=== PATIENT | male | born 1970 | race Caucasian/White ===

== ENCOUNTER → 2019-07-18 | Outpatient (CLI) | payer OTHER ==
[~2019-07-18] MED LIST: RT-ALBUTEROL SULF 2.5 MG/3 ML PRE-MIX VIAL INH ONE; RT-ALBUTEROL SULF 2.5 MG/3 ML PRE-MIX VIAL ONE
--- NOTE | 2019-07-18 18:06 | Diagnostic Imaging Report ---
INDICATION: Disability determination. Severe hip pain and bilateral knee and upper and lower back pain. FINDINGS: An AP view of the pelvis demonstrates normal ossification. No fracture or diastases is present. IMPRESSION: Normal pelvis. Dictated by: Dictated on workstation # [id number]
--- NOTE | 2019-07-18 18:18 | Diagnostic Imaging Report ---
EXAMINATION: Right knee radiographs, 2 views. COMPARISON: None. HISTORY: 49-year-old male, knee pain. FINDINGS: There is no acute fracture. There is no knee joint effusion. The joint spaces are well-preserved. There is no prominent osteophyte formation. There is no radiopaque foreign body. IMPRESSION: Unremarkable right knee radiographs. Dictated by: Dictated on workstation # [id number]
== END ==
LOC: RT 16:13
PROVIDERS: ATTEND Surgery
DX: Z02.71 Encounter for disability determination (principal); S79.911A Unspecified injury of right hip, initial encounter; S89.91XA Unspecified injury of right lower leg, initial encounter; R06.02 Shortness of breath
CPT/HCPCS: 72170; 73560; 94060; 94729

== ENCOUNTER 2019-12-31 11:25 | Inpatient (IN) | payer SELFPAY ==
[~2019-12-31] VITALS: Ht 172 cm; Wt 152.0 kg
--- NOTE | 2019-12-31 11:51 | ED Respiratory ---
General Chief Complaint: Respiratory Problems Stated Complaint: FLU LIKE SYMPTOMS Nursing Triage Note: TO TRIAGE WITH COMPLAINTS OF SOA AND COUGH FOR A FEW DAYS. Source: patient Exam Limitations: no limitations History of Present Illness Date Seen by Provider: Dec 31, 2019 Time Seen by Provider: 11:49 Initial Comments Patient presents with cough for 5 days. Some shortness of air. Especially with exertion or when he lays down. Patient was noticeably short of breath when he was walking into the room. Patient has a subjective fever, body aches. Patient reports that he does not have a primary care provider. Allergies and Home Medications Allergies Coded Allergies: No Known Drug Allergies (Unverified , 07/18/19) Patient Home Medication List Home Medication List Reviewed: Yes Review of Systems Review of Systems Constitutional: chills, fever, malaise Respiratory: cough, dyspnea on exertion, short of breath Cardiovascular: No chest pain Gastrointestinal: No abdominal pain; nausea, vomiting Musculoskeletal: no symptoms reported Skin: no symptoms reported Past Hoasruz-Uejnei-Jxyhrs Hx Past Med/Social Hx: Reviewed Nursing Past Med/Soc Hx Patient Social History Recent Foreign Travel: No Contact w/Someone Who Travel: No Recent Infectious Disease Expo: No Recent Hopitalizations: No Seasonal Allergies Seasonal Allergies: No Past Medical History Respiratory: Yes (COLALLAPSED LUNG) Cardiac: Yes Hypertension Neurological: No Genitourinary: No Gastrointestinal: No Endocrine: No HEENT: No Cancer: No Psychosocial: No Integumentary: No Physical Exam Vital Signs - First Documented 12/31/19 12/31/19 11:40 12:13 Temp 37.1 Pulse 95 Resp 20 B/P (MAP) 129/81 (97) Pulse Ox 87 O2 Delivery Room Air O2 Flow Rate 2.00 FiO2 100 Capillary Refill : Less Than 3 Seconds Height: '" Weight: lbs. oz. kg; 51.00 BMI Method: General Appearance: obese, other (mild distress especially with any exertion.) Respiratory: decreased breath sounds Cardiovascular: normal peripheral pulses, regular rate, rhythm Gastrointestinal: non tender, soft Extremities: normal range of motion Neurologic/Psychiatric: alert, normal mood/affect, oriented x 3 Progress/Results/Core Measures Suspected Sepsis Recent Fever Within 48 Hours: No Infection Criteria Present: Suspected New Infection New/Unexplained Altered Menta: No Sepsis Screen: No Definite Risk SIRS Temperature: Pulse: 95 Respiratory Rate: 20 Laboratory Tests 12/31/19 12:11: White Blood Count 5.5 Blood Pressure 129 /81 Mean: 97 Laboratory Tests 12/31/19 12:11: Creatinine 0.91, Platelet Count 188, Total Bilirubin 0.4 Results/Orders Lab Results Laboratory Tests Test 12/31/19 12:11 Range/Units White Blood Count 5.5 4.3-11.0 10^3/uL Red Blood Count 4.69 4.35-5.85 10^6/uL Hemoglobin 13.4 13.3-17.7 G/DL Hematocrit 42 40-54 % Mean Corpuscular Volume 89 80-99 FL Mean Corpuscular Hemoglobin 29 25-34 PG Mean Corpuscular Hemoglobin Concent 32 32-36 G/DL Red Cell Distribution Width 15.8 H 10.0-14.5 % Platelet Count 188 130-400 10^3/uL Mean Platelet Volume 10.6 H 7.4-10.4 FL Neutrophils (%) (Auto) 73 42-75 % Lymphocytes (%) (Auto) 16 12-44 % Monocytes (%) (Auto) 10 0-12 % Eosinophils (%) (Auto) 1 0-10 % Basophils (%) (Auto) 0 0-10 % Neutrophils # (Auto) 4.0 1.8-7.8 X 10^3 Lymphocytes # (Auto) 0.9 L 1.0-4.0 X 10^3 Monocytes # (Auto) 0.5 0.0-1.0 X 10^3 Eosinophils # (Auto) 0.1 0.0-0.3 10^3/uL Basophils # (Auto) 0.0 0.0-0.1 10^3/uL D-Dimer 0.55 H 0.00-0.49 UG/ML Sodium Level 136 135-145 MMOL/L Potassium Level 3.5 L 3.6-5.0 MMOL/L Chloride Level 101 98-107 MMOL/L Carbon Dioxide Level 26 21-32 MMOL/L Anion Gap 9 5-14 MMOL/L Blood Urea Nitrogen 7 7-18 MG/DL Creatinine 0.91 0.60-1.30 MG/DL Estimat Glomerular Filtration Rate > 60 BUN/Creatinine Ratio 8 Glucose Level 112 H 70-105 MG/DL Calcium Level 8.1 L 8.5-10.1 MG/DL Corrected Calcium 8.5 8.5-10.1 MG/DL Magnesium Level 2.0 1.6-2.4 MG/DL Total Bilirubin 0.4 0.1-1.0 MG/DL Aspartate Amino Transf (AST/SGOT) 43 H 5-34 U/L Alanine Aminotransferase (ALT/SGPT) 28 0-55 U/L Alkaline Phosphatase 59 40-136 U/L Troponin I < 0.028 <0.028 NG/ML B-Type Natriuretic Peptide < 10.0 <100.0 PG/ML Total Protein 7.0 6.4-8.2 GM/DL Albumin 3.5 3.2-4.5 GM/DL My Orders Orders - MIKA SEBASTIAN DO Cbc With Automated Diff (12/31/19 11:51) Comprehensive Metabolic Panel (12/31/19 11:51) BNP (12/31/19 11:51) Fibrin Degradation Products (12/31/19 11:51) Magnesium (12/31/19 11:51) Ekg Tracing (12/31/19 11:51) O2 (12/31/19 11:51) Ed Iv/Invasive Line Start (12/31/19 11:51) Monitor-Rhythm Ecg Trace Only (12/31/19 11:51) Albuterol/Ipra Inhalation Soln (Duoneb I (12/31/19 12:00) Chest Pa/Lat (2 View) (12/31/19 11:51) Svn Small Volume Nebulizer (12/31/19 11:51) Troponin I (12/31/19 11:51) Vital Signs/I&O 12/31/19 12/31/19 11:40 12:13 Temp 37.1 Pulse 95 Resp 20 B/P (MAP) 129/81 (97) Pulse Ox 87 95 O2 Delivery Room Air Nasal Cannula O2 Flow Rate 2.00 FiO2 100 Capillary Refill : Less Than 3 Seconds Blood Pressure Mean: 97 Departure Impression Primary Impression: Dyspnea on exertion Disposition: ADMITTED INPATIENT Condition: Stable Departure-Patient Inst. Referrals: [facility] (PCP/Family) Primary Care Physician MIKA SEBASTIAN DO Dec 31, 2019 11:51
[2019-12-31] MEDS ORDERED: RT-ALBUTEROL/IPRATROPIUM 3 ML (DUONEB) VIAL INH ONE (12:00)
[2019-12-31 12:31] LABS: BASOPHILS % (AUTO) 0 % (0-10); EOSINOPHILS # (AUTO) 0.1 10^3/uL (0.0-0.3); EOSINOPHILS % (AUTO) 1 % (0-10); HEMATOCRIT 42 % (40-54); HEMOGLOBIN 13.4 G/DL (13.3-17.7); LYMPHOCYTES # (AUTO) 0.9 X 10^3 (1.0-4.0); LYMPHOCYTES % (AUTO) 16 % (12-44); MEAN CORPUSCULAR HEMOGLOBIN 29 PG (25-34); MEAN CORPUSCULAR HGB CONC 32 G/DL (32-36); MEAN CORPUSCULAR VOLUME 89 FL (80-99); MEAN PLATELET VOLUME 10.6 FL (7.4-10.4); MONOCYTES # (AUTO) 0.5 X 10^3 (0.0-1.0); MONOCYTES % (AUTO) 10 % (0-12); NEUTROPHILS % (AUTO) 73 % (42-75); PLATELET COUNT 188 10^3/uL (130-400); RED CELL DISTRIBUTION WIDTH 15.8 % (10.0-14.5); WHITE BLOOD COUNT 5.5 10^3/uL (4.3-11.0)
[2019-12-31 12:50] LABS: ALANINE AMINOTRANSFERASE 28 U/L (0-55); ALBUMIN 3.5 GM/DL (3.2-4.5); ALKALINE PHOSPHATASE 59 U/L (40-136); BILIRUBIN,TOTAL 0.4 MG/DL (0.1-1.0); BUN/CREATININE RATIO 8; CALCIUM 8.1 MG/DL (8.5-10.1); CARBON DIOXIDE 26 MMOL/L (21-32); CHLORIDE 101 MMOL/L (98-107); CREATININE SERUM 0.91 MG/DL (0.60-1.30); GFR ESTIMATED > 60; GLUCOSE 112 MG/DL (70-105); POTASSIUM 3.5 MMOL/L (3.6-5.0); SODIUM 136 MMOL/L (135-145)
--- NOTE | 2019-12-31 13:59 | Diagnostic Imaging Report ---
EXAMINATION: CHEST (PA AND LATERAL) CLINICAL INDICATION: 49-year-old male, cough, wheezing, chills. COMPARISON: None. FINDINGS: Heart size and mediastinal contours are unremarkable. There is no identified pneumothorax. There is no large pleural effusion. There is no identified focal airspace consolidation. IMPRESSION: 1. No identified acute cardiopulmonary abnormality. Dictated by: Dictated on workstation # [id number]
--- NOTE | 2019-12-31 14:33 | History & Physical-Hospitalist ---
History of Present Illness HPI/Chief Complaint This is a 49-year-old white male who presents to the emergency room with a 4 day history of orthopnea cough and shortness of air. His oxygen saturation with any exertion goes down into the 80s. He has a history of being on a ventilator at approximately 10 years ago secondary to methane poisoning from cleaning out a p ig barn. In addition he had a chest tube as an an infant secondary to a collapsed lung. The patient notes he is unable to produce any sputum and that it's thick and just can't get it up. He complains of having bilateral chest discomfort because of the coughing and abdominal discomfort as well. He has chronic back pain for which he has taken oxycodone for years Source: patient Exam Limitations: no limitations Date Seen 12/31/19 Time Seen by a Provider: 14:30 Attending Physician [facility] [place],[facility] Referring Physician Date of Admission December 31, 2019 Home Medications & Allergies Home Medications Reviewed patient Home Medication Reconciliation performed by pharmacy medication reconciliations automotive brake technician and/or nursing. Patients Allergies have been reviewed. Allergies Allergies Coded Allergies No Known Drug Allergies (Unverified07/18/19) Past Qjmwlni-Ckodoj-Zczwed Hx Past Med/Social Hx: Reviewed Nursing Past Med/Soc Hx Patient Social History Marrital Status: single Employed/Student: unemployed Alcohol Use: Denies Use Smoking Status: Never a Smoker Recent Foreign Travel: No Contact w/other who traveled: No Recent Hopitalizations: No Recent Infectious Disease Expo: No Seasonal Allergies Seasonal Allergies: No Past Medical History Respiratory: Sleep Apnea Cardiac: Hypertension Musculoskeletal: Chronic Back Pain Family History No Pertinent Family Hx Review of Systems Constitutional: see HPI EENTM: no symptoms reported Respiratory: cough, dyspnea on exertion, orthopnea, short of breath, wheezing Cardiovascular: no symptoms reported Gastrointestinal: abdominal pain Musculoskeletal: back pain Skin: no symptoms reported Psychiatric/Neurological: No Symptoms Reported Physical Exam Physical Exam Vital Signs Vital Signs - First Documented 12/31/19 12/31/19 11:40 12:13 Temp 37.1 Pulse 95 Resp 20 B/P (MAP) 129/81 (97) Pulse Ox 87 O2 Delivery Room Air O2 Flow Rate 2.00 FiO2 100 Capillary Refill : Less Than 3 Seconds Height, Weight, BMI Height: '" Weight: lbs. oz. kg; 51.00 BMI Method: General Appearance: Mild Distress, Obese HEENT: Other (Small hypopharynx) Neck: Limited Range of Motion, Other (Short fat) Respiratory: Rales, Rhonci, Wheezing Cardiovascular: Regular Rate, Rhythm, Other (Distant) Gastrointestinal: Normal Bowel Sounds, Soft Rectal: Deferred Back: Normal Inspection Extremity: Pedal Edema Neurologic/Psychiatric: Alert, Oriented x3, No Motor/Sensory Deficits, Normal Mood/Affect Skin: Normal Color, Warm/Dry Lymphatic: No Adenopathy Results Results/Procedures Labs Laboratory Tests 12/31/19 12:11 Patient resulted labs reviewed. Assessment/Plan Admission Diagnosis Upper respiratory infection with hypoxia possible early pneumonia Possible influenza Morbid obesity with probable sleep apnea Chronic back pain Previous history of respiratory arrest Admission Status: Observation COMPA CARDOZO MD Dec 31, 2019 14:32
--- NOTE | 2019-12-31 14:55 | NUR ---
This RN just observed an order for flu swab put in at [address] Garcia. This RN called floor nurse Alexsandra JOSEPH and made her aware of the late order and the need for it to be collected.
--- NOTE | 2019-12-31 14:58 | NUR ---
MARIO KENNY admitted to room 410-1, with an admitting diagnosis of DYSPNEA, on 12/31/19 from ED via WHEELCHAIR, accompanied by ED STAFF. MARIO KENNY introduced to surroundings, call light, bed controls, phone, TV, temperature control, lights, meal times, smoking policy, visitor policy, side rail policy, bathrooms and showers. Patient Rights given to patient in the handbook. MARIO KENNY verbalizes understanding that [facility] is not responsible for the loss or damage to any personal effects or valuables that are kept in the patients possession during their hospitalization. The following Patient Care Plans were discussed with the PATIENT: Discharge Planning, HYPOXIA and KNOWLEDGE DEFICIT. MARIO KENNY verbalizes understanding of Interdisciplinary Patient Education. Patient and/or family were informed about the Rapid Response Team and its purpose.
[2019-12-31 15:01] VITALS: BP 104/72
--- NOTE | 2019-12-31 15:21 | NUR ---
FLU SWAB SENT TO LAB CHIEF CONTROLLER NOTIFIED OF ORDERED 2D ECHO
[2019-12-31 15:24] VITALS: BP 104/72
--- NOTE | 2019-12-31 15:59 | NUR ---
LEFT MESSAGE FOR DR CARDOZO. DVT SCORE IS 2
[2019-12-31 19:44] VITALS: BP 106/64
[2019-12-31] MEDS: OSELTAMIVIR 75 MG (TAMIFLU) CAPSULE PO SCH (19:51)
[2019-12-31] MEDS: ENOXAPARIN 60 MG/0.6 ML (LOVENOX) SYR SC SCH (19:51)
[2019-12-31] MEDS ORDERED: HYDROcodone/APAP 5 MG/325 MG (LORTAB) TAB PO PRN (20:45)
[2020-01-01] MEDS ORDERED: cefTRIAXone FOR IV USE 1,000 MG in WATER (STERILE) FOR INJECTION 10 ML IV ONE ×2
[2020-01-01] MEDS: methylPREDNISolone 40 MG/ML (Solu-MEDROL) VIAL IV SCH ×4 (00:01→18:29)
[2020-01-01 00:28] VITALS: BP 104/52
[2020-01-01 04:54] VITALS: BP 119/60
[2020-01-01 08:00] VITALS: BP 106/56
[2020-01-01] MEDS: ENOXAPARIN 60 MG/0.6 ML (LOVENOX) SYR SC SCH ×2 (08:34→20:51)
[2020-01-01] MEDS: OSELTAMIVIR 75 MG (TAMIFLU) CAPSULE PO SCH ×2 (08:34→20:51)
[2020-01-01 12:00] VITALS: BP 114/75
--- NOTE | 2020-01-01 13:18 | Progress Note - Hospitalist ---
Subjective HPI/CC On Admission Date Seen by Provider: Jan 01, 2020 Time Seen by Provider: 12:20 This is a 49-year-old white male who presents to the emergency room with a 4 day history of orthopnea cough and shortness of air. His oxygen saturation with any exertion goes down into the 80s. He has a history of being on a ventilator at approximately 10 years ago secondary to methane poisoning from cleaning out a pig barn. In addition he had a chest tube as an an secondary to a collapsed lung. The patient notes he is unable to produce any sputum and that it's thick and just can't get it up. He complains of having bilateral chest discomfort because of the coughing and abdominal discomfort as well. He has chronic back pain for which he has taken oxycodone for years Subjective/Events-last exam Patient complains of coughing. He actually looks a lot better. His cough sounds wet and stridorous this morning. He is on Rocephin and Tamiflu. Still desaturate some. Review of Systems Pulmonary: Dyspnea, Cough Musculoskeletal: back pain Objective Exam Vital Signs Vital Signs Date Time Temp Pulse Resp B/P (MAP) Pulse Ox O2 Delivery O2 Flow Rate FiO2 01/01/20 08:00 Nasal Cannula 2.00 01/01/20 08:00 37.2 80 20 106/56 (73) 90 12/31/19 12:13 100 Capillary Refill : Less Than 3 Seconds General Appearance: Obese HEENT: Normal ENT Inspection Neck: Limited Range of Motion Respiratory: Rales, Rhonci, Wheezing Cardiovascular: Regular Rate, Rhythm, No Gallop Gastrointestinal: Soft Neurologic/Psychiatric: Alert, Oriented x3, No Motor/Sensory Deficits, Normal Mood/Affect, roll coverer II-XII Norm as Tested Skin: Normal Color Results/Procedures Lab Patient resulted labs reviewed. Imaging: Reviewed Imaging Report Assessment/Plan Assessment and Plan Assess & Plan/Chief Complaint Influenza A Reactive airway disease secondary to influenza A Probable obstructive sleep apnea that should be worked up as an outpatient Chronic low back pain On steroids antibiotics Tamiflu and pulmonary toilet Clinical Quality Measures DVT/VTE Risk/Contraindication: Risk Factor Score Per Nursin RFS Level Per Nursing on Admit: 2=Moderate SANDNESSCOMPA MD Jan 01, 2020 13:18
[2020-01-01 13:43] LABS: BASOPHILS % (AUTO) 0 % (0-10); EOSINOPHILS % (AUTO) 0 % (0-10); HEMATOCRIT 41 % (40-54); HEMOGLOBIN 13.3 G/DL (13.3-17.7); LYMPHOCYTES # (AUTO) 0.6 X 10^3 (1.0-4.0); LYMPHOCYTES % (AUTO) 14 % (12-44); MEAN CORPUSCULAR HEMOGLOBIN 28 PG (25-34); MEAN CORPUSCULAR HGB CONC 32 G/DL (32-36); MEAN CORPUSCULAR VOLUME 89 FL (80-99); MEAN PLATELET VOLUME 9.8 FL (7.4-10.4); MONOCYTES # (AUTO) 0.2 X 10^3 (0.0-1.0); MONOCYTES % (AUTO) 4 % (0-12); NEUTROPHILS # (AUTO) 3.3 X 10^3 (1.8-7.8); NEUTROPHILS % (AUTO) 81 % (42-75); PLATELET COUNT 197 10^3/uL (130-400); RED CELL DISTRIBUTION WIDTH 15.5 % (10.0-14.5); WHITE BLOOD COUNT 4.1 10^3/uL (4.3-11.0)
[2020-01-01 14:02] LABS: ALANINE AMINOTRANSFERASE 29 U/L (0-55); ALBUMIN 3.6 GM/DL (3.2-4.5); ALKALINE PHOSPHATASE 56 U/L (40-136); BILIRUBIN,TOTAL 0.3 MG/DL (0.1-1.0); BUN/CREATININE RATIO 13; CALCIUM 8.4 MG/DL (8.5-10.1); CARBON DIOXIDE 24 MMOL/L (21-32); CHLORIDE 101 MMOL/L (98-107); CREATININE SERUM 1.05 MG/DL (0.60-1.30); GFR ESTIMATED > 60; GLUCOSE 203 MG/DL (70-105); POTASSIUM 3.9 MMOL/L (3.6-5.0); SODIUM 137 MMOL/L (135-145)
[2020-01-01] MEDS ORDERED: RT-ALBUTEROL/IPRATROPIUM 3 ML (DUONEB) VIAL INH PRN (15:30)
[2020-01-01 16:31] VITALS: BP 111/62
[2020-01-01 20:02] VITALS: BP 107/67
[2020-01-01] MEDS: IBUPROFEN 600 MG (MOTRIN) TAB PO PRN (20:52)
[2020-01-01] MEDS: RT-ALBUTEROL/IPRATROPIUM 3 ML (DUONEB) VIAL INH SCH (21:54)
[2020-01-02 00:31] VITALS: BP 91/56
[2020-01-02] MEDS: methylPREDNISolone 40 MG/ML (Solu-MEDROL) VIAL IV SCH ×4 (00:31→17:12)
[2020-01-02] MEDS: RT-ALBUTEROL/IPRATROPIUM 3 ML (DUONEB) VIAL INH SCH ×4 (03:05→21:32)
[2020-01-02 08:00] VITALS: BP 101/66
[2020-01-02] MEDS: OSELTAMIVIR 75 MG (TAMIFLU) CAPSULE PO SCH ×2 (08:14→19:54)
[2020-01-02] MEDS: ENOXAPARIN 60 MG/0.6 ML (LOVENOX) SYR SC SCH ×2 (08:15→19:54)
[2020-01-02] MEDS ORDERED: ACET-2267 PO (10:22)
[2020-01-02] MEDS ORDERED: CALC-870 PO (10:22)
[2020-01-02] MEDS ORDERED: IBUP-2473 PO (10:22)
--- NOTE | 2020-01-02 10:23 | NUR ---
SPOKE WITH PT, WENT THRU EXT MED HISTORY (THERE WAS NOTHING ON IT) TO COMPLETE THE MED REC. PT SAYS HE USED TO TAKE PRESCRIPTION MEDS FOR HIS BACK AND WOULD LIKE TO START BACK ON THEM BUT HE DOES NOT KNOW THE NAMES. WHEN ASKING WHAT PHARMACY HE PREFERS FOR HOME MEDS HE SAID "WHATEVER MEDS I DONT HAVE TO PAY AT" HE STATES HE DOES NOT HAVE AN INCOME OR INCOME SOURCE. PT SAYS HE USED TO FILL AT A PHARMACY IN [place] (MAYBE ON [address]) AND THEY HELPED HIM PAY FOR HIS MEDS BUT COULDNT REMEMBER THE NAME. [facility] BUT DID ADVISE HIM THAT HE NEEDS TO BE AN ESTABLISHED PT BEFORE HE COULD USE THE PHARMACY THERE. [facility] SINCE THE PT SAYS HE IS CLOSE TO THAT LOCATION. OTC MEDS: TUMS TYLENOL IBUPROFEN
--- NOTE | 2020-01-02 13:36 | Physician Query Clarification ---
PQ-Uncertain Diagnosis Admission/Discharge Admission Date: Dec 31, 2019 at 14:00 Discharge Date: The medical record reflects the following clinical scenario: History/Risk Factors: Upper respiratory infection with hypoxia possible early pneumonia Influenza A Clinical Findings: xray findings: Heart size and mediastinal contours are unremarkable. There is no identified pneumothorax. There is no large pleural effusion. There is no identified focal airspace consolidation. Impression: No identified acute cardiopulmonary abnormality. Shortness of air, cough, fever, body aches. Treatment:IV Ceftriaxone Sodium, IV Solu-Medrol, Albuterol inhalation therapy. Question: Is Possible early pneumonia a clinically valid diagnosis after study? Possible early pneumonia was documented in the H&P admission diagnosis. with no further documentation in the medical record. Please document a response in Progress Note or Discharge Summary. 1. Yes, clinically valid, condition resolved. 2. No, condition ruled out. 3. Other, with explanation of clinical findings. 4. Undetermined, no explanation for clinical findings. PHYSICIAN RESPONSE Diagnosis clinically valid: Other, explanation/clinical finding Explanation of clincal finding Viral pneumonia Please remember a lack of response to the above will prompt a phone page by CDI/Coding staff. In responding to this query, please exercise your independent professional judgment. The purpose of this communication is to more accurately reflect the complexity of your patients condition. The fact that a question is asked does not imply that any particular answer is desired or expected. Thank you for your timely response to this clarification. Requestors name: Mabel Llamas [facility], [facility] Phone # ext [phone] or [phone] THIS PHYSICIAN QUERY FORM IS A PERMANENT PART OF THE MEDICAL RECORD MABEL LLAMAS Jan 02, 2020 13:36 COMPA CARDOZO MD Jan 03, 2020 13:09
[2020-01-02 16:00] VITALS: BP 126/78
[2020-01-02] MEDS: IBUPROFEN 600 MG (MOTRIN) TAB PO PRN (19:53)
--- NOTE | 2020-01-02 21:01 | Progress Note ---
Subjective Subjective/Events-last exam Seen at 1030 am. Pt reporting some shaking in hands, states this was going on for some months prior to admit. Occurs when holding things and in both hands at times. Also reports area of "deadness" in lateral left leg that has been present for years and occasionally gets a tearing feeling. Objective Exam Last Set of Vital Signs Vital Signs Date Time Temp Pulse Resp B/P (MAP) Pulse Ox O2 Delivery O2 Flow Rate FiO2 01/02/20 19:34 Nasal Cannula 2.00 01/02/20 16:40 92 01/02/20 16:00 36.4 71 20 126/78 (94) 01/01/20 14:07 28 Capillary Refill : Less Than 3 Seconds I&O Intake and Output 01/02/20 00:00 Intake Total 4050 ml Balance 4050 ml Intake Oral 4040 ml IV Total 10 ml # Voids 30 # Bowel Movements 1 General: Alert, No Acute Distress Lungs: Clear to Auscultation Heart: Regular Rate, No Murmurs Neuro: Normal Speech, Other (no current tremor visible) Psych/Mental Status: Mental Status NL Results/Procedures Lab Microbiology 12/31/19 Influenza Types A,B Antigen (ANA) - Final, Complete Assessment/Plan Assessment/Plan (1) Influenza A Status: Acute Assessment & Plan: Oseltamavir. Supportive care. Febrile and on 2 lpm supplemental O2 this am. Change solumedrol to prednisone. (2) DVT prophylaxis Status: Acute Assessment & Plan: Enoxaparin Clinical Quality Measures DVT/VTE Risk/Contraindication: Risk Factor Score Per Nursin RFS Level Per Nursing on Admit: 2=Moderate MALDONADO CLAROS MD Jan 02, 2020 21:01
[2020-01-03] VITALS: BP 112/66
[2020-01-03 01:09] VITALS: BP 112/66
[2020-01-03] MEDS: RT-ALBUTEROL/IPRATROPIUM 3 ML (DUONEB) VIAL INH SCH ×4 (02:14→21:43)
[2020-01-03 07:05] LABS: HEMOGLOBIN 12.8 G/DL (13.3-17.7); MEAN PLATELET VOLUME 10.6 FL (7.4-10.4); RED CELL DISTRIBUTION WIDTH 15.3 % (10.0-14.5); WHITE BLOOD COUNT 10.5 10^3/uL (4.3-11.0)
[2020-01-03 07:35] LABS: ALANINE AMINOTRANSFERASE 28 U/L (0-55); ALBUMIN 3.3 GM/DL (3.2-4.5); ALKALINE PHOSPHATASE 51 U/L (40-136); BILIRUBIN,TOTAL 0.2 MG/DL (0.1-1.0); BUN/CREATININE RATIO 19; CALCIUM 8.2 MG/DL (8.5-10.1); CARBON DIOXIDE 27 MMOL/L (21-32); CHLORIDE 103 MMOL/L (98-107); CREATININE SERUM 0.86 MG/DL (0.60-1.30); GFR ESTIMATED > 60; GLUCOSE 150 MG/DL (70-105); POTASSIUM 3.7 MMOL/L (3.6-5.0); SODIUM 140 MMOL/L (135-145); TOTAL PROTEIN 6.3 GM/DL (6.4-8.2)
[2020-01-03 07:44] LABS: FREE T4 (FREE THYROXINE) 0.62 NG/DL (0.70-1.48)
[2020-01-03] MEDS: OSELTAMIVIR 75 MG (TAMIFLU) CAPSULE PO SCH ×2 (08:54→20:33)
[2020-01-03 08:55] VITALS: BP 110/56
[2020-01-03] MEDS: ENOXAPARIN 60 MG/0.6 ML (LOVENOX) SYR SC SCH ×2 (08:55→20:33)
[2020-01-03] MEDS: predniSONE 20 MG TAB PO SCH (08:55)
--- NOTE | 2020-01-03 10:34 | Progress Note ---
Subjective Subjective/Events-last exam Afebrile, feeling somewhat better. Objective Exam Last Set of Vital Signs Vital Signs Date Time Temp Pulse Resp B/P (MAP) Pulse Ox O2 Delivery O2 Flow Rate FiO2 01/03/20 08:55 36.4 73 20 110/56 (74) 95 Nasal Cannula 3.00 01/01/20 14:07 28 Capillary Refill : Less Than 3 Seconds I&O Intake and Output 01/03/20 00:00 Intake Total 3740 ml Balance 3740 ml Intake Oral 3740 ml # Voids 16 # Bowel Movements 1 General: Alert, No Acute Distress Lungs: Clear to Auscultation Heart: Regular Rate, No Murmurs Neuro: Normal Speech Psych/Mental Status: Mental Status NL Results/Procedures Lab Laboratory Tests 01/03/20 06:03: White Blood Count 10.5, Red Blood Count 4.46, Hemoglobin 12.8L, Hematocrit 39L, Mean Corpuscular Volume 88, Mean Corpuscular Hemoglobin 29, Mean Corpuscular Hemoglobin Concent 33, Red Cell Distribution Width 15.3H, Platelet Count 205, Mean Platelet Volume 10.6H, Sodium Level 140, Potassium Level 3.7, Chloride Level 103, Carbon Dioxide Level 27, Anion Gap 10, Blood Urea Nitrogen 16, Creatinine 0.86, Estimat Glomerular Filtration Rate > 60, BUN/Creatinine Ratio 19, Glucose Level 150H, Calcium Level 8.2L, Corrected Calcium 8.8, Total Bilirubin 0.2, Aspartate Amino Transf (AST/SGOT) 34, Alanine Aminotransferase (ALT/SGPT) 28, Alkaline Phosphatase 51, Total Protein 6.3L, Albumin 3.3, Free Thyroxine 0.62L Microbiology 12/31/19 Influenza Types A,B Antigen (ANA) - Final, Complete Assessment/Plan Assessment/Plan (1) Influenza A Status: Acute Assessment & Plan: Oseltamavir. Supportive care. Febrile and on 2 lpm supplemental O2 this am. Change solumedrol to prednisone. 01/02 fever free last 24 hours, still on 3 lpm supplemental O2, continue breathing treatments and oseltamavir (2) Low TSH level Status: Acute Assessment & Plan: With also low free T4, suspect related to illness and glucocorticoid use, will need repeated after illness. (3) Glucose intolerance Assessment & Plan: A1c 6.5, discussed will need repeat testing for confirmation, but either has diagnosis of diabetes or is at very high risk. Dietitian already consulted yesterday. (4) DVT prophylaxis Status: Acute Assessment & Plan: Enoxaparin Clinical Quality Measures DVT/VTE Risk/Contraindication: Risk Factor Score Per Nursin RFS Level Per Nursing on Admit: 2=Moderate MALDONADO CLAROS MD Jan 03, 2020 10:34
--- NOTE | 2020-01-03 11:58 | NUR ---
RD ASSESSMENT PMHx: HTN PT INTERACTION: Pt was awake and pleasant during dietary consult for Healthy diet. Pt states current appetite is "getting better." Note avg PO intake of 96% x2d, per chart review. Pt states following a regular diet at home, and has some issues with chewing food d/t bad tooth on one side of his mouth. Pt states some issues with nausea, but no vomiting. Pt states chronic issues with constipation. Note last BM was 3/2 and pt not currently on bowel regimen per chart review. Pt states recent 10# wt loss d/t recent illness. Note unable to determine recent wt hx, per chart review. ABNORMAL NUTRITION-RELATED LAB VALUES LOW: Ca 8.2; Pro 6.3 HIGH: glu 150; HbA1c 6.5 (01/01/2020) Est. kcal needs: 3904-8674 kcal | 15-18 kcal/kg Est. Pro needs: 122-152 g Pro | 0.8-1.0 g Pro/kg PES STATEMENT: Food- and nutrition-related knowledge deficit (NB-1.1) related to lack of prior nutrition-related knowledge as evidenced by no prior knowledge of need for food- and nutrition-related recommendations INTERVENTION: Continue with current diet order of Regular diet. Discussed with pt questions about healthy eating habits. Discussed sodium content in food and preparation methods to lower sodium content. Pt discussed concerns of financial stability when purchasing food. Discussed options for healthy eating on a budget. Discussed fat content in foods and healthy options to reduce fat content in food. Provided contact information should the pt have more questions upon discharge. Will continue to follow and reassess as pt needs, intake and status change. MONITOR/EVALUATE: PO Intake; Plan of Care; Hydration Status; Weight Status; Lab Values Alisa De La Cruz, MS, RD, LD
[2020-01-03 16:00] VITALS: BP 125/73
[2020-01-04] VITALS: BP 130/77
[2020-01-04] MEDS: RT-ALBUTEROL/IPRATROPIUM 3 ML (DUONEB) VIAL INH SCH (02:07)
[2020-01-04] MEDS: predniSONE 20 MG TAB PO SCH (05:53)
[2020-01-04 08:19] VITALS: BP 109/61
[2020-01-04] MEDS: ENOXAPARIN 60 MG/0.6 ML (LOVENOX) SYR SC SCH (09:24)
[2020-01-04] MEDS: OSELTAMIVIR 75 MG (TAMIFLU) CAPSULE PO SCH (09:24)
--- NOTE | 2020-01-04 10:28 | NUR ---
SPO2 DROPPED TO 84% ON ROOM AIR AT REST. PLACED PT ON O2 @ 5 LPM, SPO2 INCREASED TO 91%. PT WALKED, SPO2 DROPPED TO 88% WITH EXERTION. INCREASED O2 TO 6 LPM. SPO2 STAYED ABOVE 90% WITH EXERTION ON O2 @ 6 LPM. Addendum: 01/04/20 at 1047 by SOLIS CAMACHO RT Amended: Links added.
[2020-01-04] MEDS ORDERED: PRD10T PO ×2 (11:11→13:48)
[2020-01-04] MEDS ORDERED: OSLT75C PO (11:11)
[2020-01-04] MEDS ORDERED: RT-ALBUINH IH ×2 (11:11→13:48)
--- NOTE | 2020-01-04 11:17 | Discharge Summary ---
Discharge Summary Hospital Course Problems/Diagnosis: (1) Influenza A Status: Acute Assessment & Plan: Oseltamavir. Supportive care. Febrile and on 2 lpm supplemental O2 this am. Change solumedrol to prednisone. 01/02 fever free last 24 hours, still on 3 lpm supplemental O2, continue breathing treatments and oseltamavir 01/03 continues to have significant supplemental oxygen requirement, but otherwise stable, ready to go home, sent with home oxygen and pulm rehab orders. (2) Low TSH level Status: Acute Assessment & Plan: With also low free T4, suspect related to illness and glucocorticoid use, will need repeated after illness. (3) Glucose intolerance Assessment & Plan: A1c 6.5, discussed will need repeat testing for confirmation, but either has diagnosis of diabetes or is at very high risk. Dietitian already consulted yesterday. Hospital Course Date of Admission: Dec 31, 2019 at 14:00 Admission Diagnosis : Family Physician/Provider: Camilla[facility] Date of Discharge: 01/04/20 Discharge Diagnosis: See problem list Hospital Course: See problem list Labs and Pending Lab Test: Microbiology 12/31/19 Influenza Types A,B Antigen (ANA) - Final, Complete Home Meds Active Proair Hfa (Albuterol Sulfate) 1 Puff Puff 2 Puff IH Q4H PRN 1 PUFF = 90 MCG Prednisone 10 Mg Tab 0 PO UD Take 5 tabs(50mg)daily, decrease by 1 tab(10mg) every other day. Tamiflu (Oseltamivir Phosphate) 75 Mg Cap 75 Mg PO BID 1 Days Relabel inpatient medication for home use to complete 5 day course Reported Ibuprofen 200 Mg Tablet 400-600 Mg PO Q8H PRN Tylenol Extra Strength (Acetaminophen) 500 Mg Tablet 1,000 Mg PO Q8H PRN Tums X-Str (Calcium Carbonate) 300 Mg Tab.chew 600 Mg PO PRN PRN Assessment/Pt DC Instructions Follow up with Dudley Schneider at [facility] on 01/09 at 1:20 pm. Discharge Diet: ADA Diet Activity as Tolerated: Yes Discharge Physical Examination Allergies: Coded Allergies: No Known Drug Allergies (Unverified , 07/18/19) General Appearance: No Apparent Distress, WD/WN Respiratory: Lungs Clear, Normal Breath Sounds Cardiovascular: Regular Rate, Rhythm, No Murmur Skin: Normal Color, Warm/Dry Neurologic/Psychiatric: Alert, Normal Mood/Affect Copy Copies To 1: Dudley Schneider Clinical Quality Measures DVT/VTE Risk/Contraindication: Risk Factor Score Per Nursin RFS Level Per Nursing on Admit: 2=Moderate MALDONADO CLAROS MD Jan 04, 2020 11:17
[2020-01-04] MEDS ORDERED: RELABEL FOR HOME USE MC SCH (13:45)
--- NOTE | 2020-01-04 15:12 | NUR ---
CM/SS: Visit with pt as to his discharge plan and need for oxygen and no insurance coverage Plan: Pt will discharge to home with home oxygen Summary: Pt reports having no insurance, and currently is not working. This worker explains the process as to getting oxygen with no insurance going through [facility] [employer]. He is ok with that. Financial Services had requested a Statement of Support. Pt completed it the form and signed it. Financial Services (Tiana) contacted and this is not to be completed by pt. Financial Services will come and give pt another form and have him get it completed by supportive individual who provide for him financially and returned. Oxygen information is faxed to [facility]. Pt is encouraged to get the paperwork completed and returned otherwise he may have a bill if the financial application is not approved. He verbalizes understanding. Pt is also agreeable to get his medications through [facility] as they have assistance for those without insurance.
[2020-01-04 16:00] VITALS: BP 131/86
--- NOTE | 2020-01-04 17:30 | NUR ---
RX AND INST REVIEWED AND VERBALIZED UNDERSTANDING. DC'D PER WC WITH HOME PORTABLE O2 @ 6L N/C. Addendum: 01/04/20 at 1732 by ROBLES CORONADO RN YANCI RELABELED AND SENT WITH PT ORDERED.
[2020-01-04] MEDS ORDERED: OSELTAMIVIR 75 MG (TAMIFLU) CAPSULE PO SCH (21:00)
--- NOTE | 2020-01-05 11:40 | NUR ---
RECEIVED ORDER FOR PT TO GO THROUGH PULMONARY REHABILITATION; LOOKED UP FILE TO SEE IF PT HAD A PFT IN RECORDS AND TO SEE WHO IS PRIMARY PHYSICIAN.
--- OUTSIDE RECORDS SUMMARY | 2020-01-06 08:26 | XMS REPORT ---
Author Author Mansi James Doctor Organization [facility] Address Unknown Phone Unavailable Care Team Providers Care Tip Bander Name Role Phone Migration, Doctor Unavailable Unavailable PROBLEMS Type Condition ICD9-CM Code [id number] Code Onset Dates Condition S tatus SNOMED Code Problem Routine general medical examination at [facility] y V70.0 Active 347375693 Problem Shortness of breath 786.05 Active 374446807 Problem Disturbance of skin sensation 782.0 Active 765359896 Problem Conversion disorder 300.11 Active 44399631 Problem Dermatophytosis of nail 110.1 Active 751458729 Problem Pain in joint, pelvic region and thigh 719.45 Active 174736613 Problem Acute bronchitis 466.0 Active 105 58475 Problem Acute sinusitis, unspecified 461.9 A ctive 49080605 Problem Other specified visual disturbances 368.8 Active [id number] ALLERGIES No Information ENCOUNTERS Encounter Location Date Diagnosis [facility] [address] [facility] [id number] [address] [place] [phone] Jan, [facility] [address] [place] [id number] [address] [place] [phone] Jan, [facility] [address] [id number] [address] [place] [phone] Dec, [facility] [address] [facility] [id number] [address] [place] [phone] Dec, [facility] [address] [facility] [id number] [address] [place] [phone] Nov, [facility] [address] [id number] [address] [place] [phone] Nov, [facility] [address] [facility] [id number] [address] [place] [phone] Oct, [facility] [address] [id number] [address] [place] [phone] Oct, [facility] [address] [id number] [address] [place] [phone] Jul, [facility] [address] [id number] [address] [place] [phone] Jul, [facility] [address] [id number] [address] [place] [phone] Jul, [facility] [address] [id number] [address] [place] [phone] Jul, [facility] [address] [id number] [address] [place] [phone] Jun, [facility] [address] [id number] [address] [place] [phone] May, [facility] [address] [id number] [address] [place] [phone] May, [facility] [address] [id number] [address] [place] [phone] Apr, [facility] [address] [id number] [address] [place] [phone] Apr, [facility] [address] [id number] [address] [place] [phone] Apr, [facility] [address] [id number] [address] [place] [phone] March, IMMUNIZATIONS No Known Immunizations SOCIAL HISTORY Never Assessed REASON FOR VISIT [facility] [place] [place] PLAN OF CARE VITAL SIGNS MEDICATIONS Medication Instructions Dosage Frequency Start Date End Date Duration S tatus Albuterol Sulfate 90 mcg/actuation 2 puf fs by Inhalation route every 4-6 hours as needed PRN cough or wheezing Jul, Active Terbinafine 1 % 1 delvis by Topical route 2 times per day for 90 day(s) Nov, Active Terbinafine 250 mg 1 tablet by Oral rou te 1 time per day for 90 day(s) for toe fungus Jul, Active Keppra 500 mg 1 tablet by Oral route 2 times per day Nov, Active Vitamin B1 250 mg 1 Tablet 1 time per day Apr, Active Flonase 50 mcg/actuation 1 sprays by Best al route 2 times per day in each nostril Jul, Active Vitamin C 1,000 mg 1 tablet by Oral route 1 time per day Nov, Active RESULTS No Results PROCEDURES No Known procedures INSTRUCTIONS MEDICATIONS ADMINISTERED No Known Medications
--- OUTSIDE RECORDS SUMMARY | 2020-01-06 08:26 | XMS REPORT ---
Author Author Mansi James Doctor Organization [facility] Address Unknown Phone Unavailable Care Team Providers Care Industrial Automation Engineer Name Role Phone Migration, Doctor Unavailable Unavailable PROBLEMS Type Condition ICD9-CM Code [id number] Code Onset Dates Condition S tatus SNOMED Code Problem Routine general medical examination at [facility] y V70.0 Active 039715833 Problem Shortness of breath 786.05 Active 205076484 Problem Disturbance of skin sensation 782.0 Active 874821279 Problem Conversion disorder 300.11 Active 64617292 Problem Dermatophytosis of nail 110.1 Active 185980900 Problem Pain in joint, pelvic region and thigh 719.45 Active 537341979 Problem Acute bronchitis 466.0 Active 105 45319 Problem Acute sinusitis, unspecified 461.9 A ctive 65592148 Problem Other specified visual disturbances 368.8 Active [id number] ALLERGIES No Information ENCOUNTERS Encounter Location Date Diagnosis [facility] [address] [facility] [id number] [address] [place] [phone] Jan, [facility] [address] [facility] [id number] [address] [place] [phone] Jan, [facility] [address] [place] [id number] [address] [place] [phone] Dec, [facility] [address] [facility] [id number] [address] [place] [phone] Dec, [facility] [address] [facility] [id number] [address] [place] [phone] Nov, [facility] [address] [place] [id number] [address] [place] [phone] Nov, [facility] [address] [facility] [id number] [address] [place] [phone] Oct, [facility] [address] [place] [id number] [address] [place] [phone] Oct, [facility] [address] [id number] [address] [place] [phone] 24 Jul, 2013 [facility] [address] [id number] [address] [place] [phone] Jul, [facility] [address] [id number] [address] [place] [phone] 16 Jul, 2013 [facility] [address] [id number] [address] [place] [phone] Jul, [facility] [address] [id number] [address] [place] [phone] Jun, [facility] [address] [id number] [address] [place] [phone] May, [facility] [address] [id number] [address] [place] [phone] May, [facility] [address] [id number] [address] [place] [phone] Apr, [facility] [address] [id number] [address] [place] [phone] Apr, [facility] [address] [id number] [address] [place] [phone] Apr, [facility] [address] [id number] [address] [place] [phone] March, IMMUNIZATIONS No Known Immunizations SOCIAL HISTORY Never Assessed REASON FOR VISIT [facility] PLAN OF CARE VITAL SIGNS MEDICATIONS Unknown Medications RESULTS No Results PROCEDURES No Known procedures INSTRUCTIONS MEDICATIONS ADMINISTERED No Known Medications
--- OUTSIDE RECORDS SUMMARY | 2020-01-06 08:26 | XMS REPORT ---
Author Author Mansi James Doctor Organization [facility] Address Unknown Phone Unavailable Care Team Providers Care Environmental Services Director Name Role Phone Migration, Doctor Unavailable Unavailable PROBLEMS Type Condition ICD9-CM Code APD13-QN Code Onset Dates Condition S tatus SNOMED Code Problem Routine general medical examination at [facility] y V70.0 Active 421636077 Problem Shortness of breath 786.05 Active 394003872 Problem Disturbance of skin sensation 782.0 Active 721933059 Problem Conversion disorder 300.11 Active 94028464 Problem Dermatophytosis of nail 110.1 Active 396318712 Problem Pain in joint, pelvic region and thigh 719.45 Active 689250913 Problem Acute bronchitis 466.0 Active 105 44518 Problem Acute sinusitis, unspecified 461.9 A ctive 02970005 Problem Other specified visual disturbances 368.8 Active [id number] ALLERGIES No Information ENCOUNTERS Encounter Location Date Diagnosis [facility] [address] [facility] [id number] [address] [place] [phone] Jan, [facility] [address] [place] [id number] [address] [place] [phone] Jan, [facility] [address] [place] [id number] [address] [place] [phone] Dec, [facility] [address] [facility] [id number] [address] [place] [phone] Dec, [facility] [address] [facility] [id number] [address] [place] [phone] Nov, [facility] [address] [place] [id number] [address] [place] [phone] Nov, [facility] [address] [facility] [id number] [address] [place] [phone] Oct, [facility] [address] [place] [id number] [address] [place] [phone] Oct, [facility] [address] [id number] [address] [place] [phone] 24 Jul, 2013 [facility] [address] [id number] [address] [place] [phone] Jul, [facility] [address] [id number] [address] [place] [phone] 16 Jul, 2013 [facility] [address] [id number] [address] [place] [phone] Jul, [facility] [address] [id number] [address] [place] [phone] Jun, [facility] [address] [id number] [address] [place] [phone] May, [facility] [address] [id number] [address] [place] [phone] May, [facility] [address] [id number] [address] [place] [phone] Apr, [facility] [address] [id number] [address] [place] [phone] Apr, [facility] [address] [id number] [address] [place] [phone] Apr, [facility] [address] [id number] [address] [place] [phone] March, IMMUNIZATIONS No Known Immunizations SOCIAL HISTORY Never Assessed REASON FOR VISIT [facility] PLAN OF CARE VITAL SIGNS MEDICATIONS Unknown Medications RESULTS No Results PROCEDURES No Known procedures INSTRUCTIONS MEDICATIONS ADMINISTERED No Known Medications
--- OUTSIDE RECORDS SUMMARY | 2020-01-06 08:26 | XMS REPORT | Continuity of Care Document ---
Author Author [facility] Organization [facility] Address Unknown Phone Unavailable Care Team Providers Care Pneumatic Tube Repairer Name Role Phone IRINEO CANNON PP Insurance Providers Payer Name Policy Number Subscriber Name Relationship Self Pay Vaibhav Ladd n E 01 Self / Same As Patient Problems No Known Problems or Medical conditions. Allergies, Adverse Reactions, Alerts No known allergies Medications No known medications Response Recorded Date/Time Status not known Unknown Results No Known Relevant Diagnostic Tests, Laboratory Data and/or Discharge Summary.
--- OUTSIDE RECORDS SUMMARY | 2020-01-06 08:26 | XMS REPORT ---
Author Author Mansi James Doctor Organization [facility] Address Unknown Phone Unavailable Care Team Providers Care Application Development Team Lead Name Role Phone Migration, Doctor Unavailable Unavailable PROBLEMS Type Condition ICD9-CM Code [id number] Code Onset Dates Condition S tatus SNOMED Code Problem Routine general medical examination at [facility] y V70.0 Active 463708335 Problem Shortness of breath 786.05 Active 529209285 Problem Disturbance of skin sensation 782.0 Active 191897037 Problem Conversion disorder 300.11 Active 53768677 Problem Dermatophytosis of nail 110.1 Active 653331395 Problem Pain in joint, pelvic region and thigh 719.45 Active 419230830 Problem Acute bronchitis 466.0 Active 105 21960 Problem Acute sinusitis, unspecified 461.9 A ctive 70847780 Problem Other specified visual disturbances 368.8 Active 83230167 ALLERGIES No Information ENCOUNTERS Encounter Location Date Diagnosis [facility] [id number] [place] [address] Jan, [facility] [address] [phone] Jan, [facility] [address] [phone] Dec, [facility] [id number] [place] [address] Dec, [facility] [address] [phone] Nov, [facility] [address] [phone] Nov, [facility] [address] [phone] Oct, [facility] [address] [phone] Oct, [facility] [id number] [place] [address] 24 Jul, 2013 [facility] [address] [id number] [place] [address] Jul, [facility] [address] [id number] [place] [address] 16 Jul, 2013 [facility] [address] [id number] [place] [address] Jul, [facility] [address] [id number] [place] [address] Jun, [facility] [address] [id number] [place] [address] May, [facility] [address] [id number] [place] [address] May, [facility] [address] [id number] [place] [address] Apr, [facility] [address] [id number] [place] [address] Apr, [facility] [address] [id number] [place] [address] Apr, [facility] [address] [id number] [place] [address] March, IMMUNIZATIONS No Known Immunizations SOCIAL HISTORY Never Assessed REASON FOR VISIT PLAN OF CARE VITAL SIGNS MEDICATIONS Unknown Medications RESULTS No Results PROCEDURES No Known procedures INSTRUCTIONS MEDICATIONS ADMINISTERED No Known Medications
== END 2020-01-04 17:15 | disposition home or self-care (01) | DRG 194 ==
LOC: EDUNIT# 11:25 → ER 11:27 → OBSVTOIN 14:00 → 4TH 14:00
PROVIDERS: ADMIT Internal Medicine; ATTEND Family Medicine
DX: J10.08 Influenza due to other identified influenza virus with other specified pneumonia (principal); Z68.43 Body mass index [BMI] 50.0-59.9, adult; J12.9 Viral pneumonia, unspecified; J06.9 Acute upper respiratory infection, unspecified; J45.909 Unspecified asthma, uncomplicated; E66.01 Morbid (severe) obesity due to excess calories; G47.33 Obstructive sleep apnea (adult) (pediatric); I10 Essential (primary) hypertension; M54.5 Low back pain; E74.39 Other disorders of intestinal carbohydrate absorption; R94.6 Abnormal results of thyroid function studies
CPT/HCPCS: 36415; 71046; 80053; 83036; 83735; 83880; 84439; 84443; 84484; 85025; 85027; 85379; 87804; 93005; 93041; 93306; 94640; 94760; 94761

== ENCOUNTER 2022-08-14 21:57 | Emergency (ER) | payer SELFPAY ==
[~2022-08-14] VITALS: Ht 172 cm; Wt 152.0 kg
[~2022-08-14 21:57] MED LIST changes: +ACET-2267 PO; +ALBU8.5H6 IH; +CALC-870 PO; +IBUP-2473 PO; +OSLT75C PO; +PRD10T PO; -RT-ALBUTEROL SULF 2.5 MG/3 ML PRE-MIX VIAL INH ONE; -RT-ALBUTEROL SULF 2.5 MG/3 ML PRE-MIX VIAL ONE
[2022-08-14] MEDS ORDERED: RT-ALBUTEROL HFA 8.5 GM INHALER IH STA (22:28)
--- NOTE | 2022-08-14 22:35 | ED Respiratory ---
General Chief Complaint: Respiratory Problems Stated Complaint: SOA Nursing Triage Note: increased soa x3 days. home o2 4/5L Source: patient Exam Limitations: no limitations (LEXIS GILLILAND) History of Present Illness Date Seen by Provider: Aug 14, 2022 Time Seen by Provider: 22:15 Initial Comments This 52 y/o male presents with reported increased SOA. Patient reports for the past three days he has had increased SOA and has required 4-5L of supplemental oxygen via nasal cannula. Patient states he usually requires 4L of supplemental oxygen at home. Patients states he was previously hospitalized for influenza and has required oxygen since. Per patient's record he was hospitalized in 2019. Patient reports associated symptoms of dry cough when laying flat, diarrhea, left calf pain, and urinary incontinence x2. Patient states the episodes of urinary incontinence occurred due to not being able to make it to the restroom in time. Patient denies following-up with a PCP regularly. Timing/Duration: other (onset of symptoms 3 days ago) Severity: mild Prior Episodes/Possible Cause: unknown cause Modifying Factors: Worse With Activity, Worse With Lying Down; Improves With Oxygen Associated Symptoms: No fever/chills; shortness of breath; No wheezing (LEXIS GILLILAND) Initial Comments Patient denies any history of cardiac pathology and has not had a formal cardiac evaluation. He does not follow with a primary care provider presently. He does not describe any chest pain but states he has had a vague tightness. He has not been febrile to his knowledge. Patient also describes a remote history of ammonia exposure in a barn followed by pneumonia resulting in hospitalization. He was intubated at [facility] in [place] according to his recollection. (VALENTINA VALERIO MD) Allergies and Home Medications Allergies Coded Allergies: No Known Drug Allergies (Unverified , 07/18/19) Patient Home Medication List Home Medication List Reviewed: Yes (LEXIS GILLILAND) Acetaminophen (Tylenol Extra Strength) 500 Mg Tablet, 1,000 MG PO Q8H PRN for PAIN-MILD (1-4), (Reported) Entered as Reported by: YOLANDA KRAUS on 01/02/20 1022 Albuterol Sulfate (Proair Hfa) 1 Puff Puff, 2 PUFF IH Q4H PRN for SHORTNESS OF BREATH Prescribed by: ROBLES CORONADO on 01/04/20 1348 Calcium Carbonate (Tums X-Str) 300 Mg Tab.chew, 600 MG PO PRN PRN for INDIGESTION, (Reported) Entered as Reported by: YOLANDA KRAUS on 01/02/20 1022 Ibuprofen (Ibuprofen) 200 Mg Tablet, 400-600 MG PO Q8H PRN for PAIN-MILD (1-4), (Reported) Entered as Reported by: YOLANDA KRAUS on 01/02/20 1022 Oseltamivir Phosphate (Tamiflu) 75 Mg Cap, 75 MG PO BID Prescribed by: MALDONADO CLAROS on 01/04/20 1111 Prednisone (Prednisone) 10 Mg Tab, 0 PO UD Prescribed by: ROBLES CORONADO on 01/04/20 1348 Review of Systems Review of Systems Constitutional: no symptoms reported EENTM: no symptoms reported Respiratory: orthopnea, short of breath, other (cough induced by laying down) Cardiovascular: no symptoms reported Gastrointestinal: diarrhea Genitourinary: no symptoms reported Musculoskeletal: other (left calf pain) Skin: no symptoms reported Psychiatric/Neurological: No Symptoms Reported Hematologic/Lymphatic: No Symptoms Reported Immunological/Allergic: no symptoms reported (LEXIS GILLILAND) All Other Systems Reviewed Negative Unless Noted: Yes (LEXIS GILLILAND) Past Rfsjbro-Hdiwxj-Sjrdik Hx Patient Social History Tobacco Use?: Yes Tobacco type used: Cigars Substance use?: No Alcohol Use?: Yes Alcohol Frequency: Once in a while Pt feels they are or have been: No (LEXIS GILLILAND) Immunizations Up To Date First/Initial COVID19 Vaccinat: x2 (LEXIS GILLILAND) Seasonal Allergies Seasonal Allergies: No (LXEIS GILLILAND) Past Medical History Surgery/Hospitalization HX: umbilical hernia, htn, pneumonia, swine flu Respiratory: Yes (COLALLAPSED LUNG) Cardiac: Yes Hypertension Neurological: No Genitourinary: No Gastrointestinal: No Chronic Back Pain Endocrine: No HEENT: No Cancer: No Psychosocial: No Integumentary: No (LEXIS GILLILAND) Surgeries: Yes Abdominal (Hernia repair) Respiratory: Yes (History of respiratory failure with intubation) Pneumonia Endocrine: Yes (Borderline diabetes, morbid obesity) (VALENTINA VALERIO MD) Family Medical History No Pertinent Family Hx (LEXIS GILLILAND) Physical Exam Vital Signs - First Documented 08/14/22 08/14/22 22:02 22:57 Temp 35.2 Pulse 114 Resp 20 B/P (MAP) 146/120 (129) Pulse Ox 89 O2 Delivery Nasal Cannula O2 Flow Rate 5.00 FiO2 87 (VALENTINA VALERIO MD) Capillary Refill : (LEXIS GILLILAND) Height: '" Weight: lbs. oz. kg; 51.00 BMI Method: General Appearance: mild distress (hypoxic on 6L nasal cannula; switched to oxy mask ) HEENT: PERRL/EOMI Respiratory: decreased breath sounds; No wheezing; other (mild wheezing and cough induced by forced expiration) Cardiovascular: regular rate, rhythm, no JVD, other (mild lower extremity edema bilaterally) Gastrointestinal: normal bowel sounds, non tender, soft Extremities: pedal edema (mild) Neurologic/Psychiatric: alert, normal mood/affect, oriented x 3 Skin: normal color, warm/dry Lymphatic: no adenopathy This exam was performed by Dr. Valerio and dictated to me. (LEXIS GILLILAND) General Appearance: obese Gastrointestinal: other (Obese abdomen) Extremities: no calf tenderness, swelling (Firm edema equal bilaterally) (VALENTINA VALERIO MD) Focused Exam Lactate Level 08/14/22 23:09: Lactic Acid Level 2.62*H 08/15/22 01:12: Lactic Acid Level 1.93 (VALENTINA VALERIO MD) Lactic Acid Level Laboratory Tests Test 08/14/22 23:09 08/15/22 01:12 Lactic Acid Level 2.62 MMOL/L (0.50-2.00) *H 1.93 MMOL/L (0.50-2.00) (VALENTINA VALERIO MD) Progress/Results/Core Measures Suspected Sepsis SIRS Temperature: Pulse: 114 Respiratory Rate: 20 Blood Pressure 146 /120 Mean: 129 (LEXIS GILLILAND) Results/Orders Lab Results Laboratory Tests Test 08/14/22 22:21 08/14/22 22:43 08/14/22 23:00 08/14/22 23:09 Range/Units Influenza Type A (RT-PCR) Not Detected Not Detecte Influenza Type B (RT-PCR) Not Detected Not Detecte SARS-CoV-2 RNA (RT-PCR) Not Detected Not Detecte White Blood Count 15.3 H 4.3-11.0 10^3/uL Red Blood Count 4.92 4.30-5.52 10^6/uL Hemoglobin 13.5 13.3-17.7 g/dL Hematocrit 44 40-54 % Mean Corpuscular Volume 89 80-99 fL Mean Corpuscular Hemoglobin 27 25-34 pg Mean Corpuscular Hemoglobin Concent 31 L 32-36 g/dL Red Cell Distribution Width 15.8 H 10.0-14.5 % Platelet Count 233 130-400 10^3/uL Mean Platelet Volume 11.0 9.0-12.2 fL Immature Granulocyte % (Auto) 1 % Neutrophils (%) (Auto) 81 H 42-75 % Lymphocytes (%) (Auto) 10 L 12-44 % Monocytes (%) (Auto) 6 0-12 % Eosinophils (%) (Auto) 1 0-10 % Basophils (%) (Auto) 0 0-10 % Neutrophils # (Auto) 12.4 H 1.8-7.8 10^3/uL Lymphocytes # (Auto) 1.6 1.0-4.0 10^3/uL Monocytes # (Auto) 0.9 0.0-1.0 10^3/uL Eosinophils # (Auto) 0.1 0.0-0.3 10^3/uL Basophils # (Auto) 0.0 0.0-0.1 10^3/uL Immature Granulocyte # (Auto) 0.2 H 0.0-0.1 10^3/uL Neutrophils % (Manual) 79 % Lymphocytes % (Manual) 12 % Monocytes % (Manual) 8 % Eosinophils % (Manual) 1 % Nucleated Red Blood Cells 2 Polychromasia SLIGHT Prothrombin Time 14.6 12.2-14.7 SEC INR Comment 1.1 0.8-1.4 Activated Partial Thromboplast Time 30 24-35 SEC D-Dimer 2.10 H 0.00-0.49 UG/ML Sodium Level 136 135-145 MMOL/L Potassium Level 4.1 3.6-5.0 MMOL/L Chloride Level 100 98-107 MMOL/L Carbon Dioxide Level 23 21-32 MMOL/L Anion Gap 13 5-14 MMOL/L Blood Urea Nitrogen 15 7-18 MG/DL Creatinine 1.32 H 0.60-1.30 MG/DL Estimat Glomerular Filtration Rate 65 BUN/Creatinine Ratio 11 Glucose Level 297 H 70-105 MG/DL Calcium Level 9.0 8.5-10.1 MG/DL Corrected Calcium 9.3 8.5-10.1 MG/DL Magnesium Level 1.8 1.6-2.4 MG/DL Total Bilirubin 0.5 0.1-1.0 MG/DL Aspartate Amino Transf (AST/SGOT) 53 H 5-34 U/L Alanine Aminotransferase (ALT/SGPT) 55 0-55 U/L Alkaline Phosphatase 117 40-136 U/L Myoglobin 68.1 10.0-92.0 NG/ML Troponin I 0.218 H <0.028 NG/ML C-Reactive Protein High Sensitivity 7.45 H 0.00-0.50 MG/DL B-Type Natriuretic Peptide 26.3 <100.0 PG/ML Total Protein 7.5 6.4-8.2 GM/DL Albumin 3.6 3.2-4.5 GM/DL Procalcitonin 0.13 H <0.10 NG/ML Blood Gas Puncture Site LRAD Blood Gas Patient Temperature 35.2 Arterial Blood pH 7.42 7.37-7.43 Arterial Blood Partial Pressure CO2 41 35-45 MMHG Arterial Blood Partial Pressure O2 49 L 79-93 MMHG Arterial Blood HCO3 27 23-27 MMOL/L Arterial Blood Total CO2 28.3 21.0-31.0 MMOL/L Arterial Blood Oxygen Saturation 88 L 94-100 % Arterial Blood Base Excess 2.5 -2.5-2.5 MMOL/L Sharan Test YES-POS Blood Gas Ventilator Setting NO Blood Gas Inspired Oxygen UNKNOWN Lactic Acid Level 2.62 *H 0.50-2.00 MMOL/L Test 08/15/22 01:12 08/15/22 01:40 Range/Units Lactic Acid Level 1.93 0.50-2.00 MMOL/L Urine Color YELLOW Urine Clarity CLEAR Urine pH 6.5 5-9 Urine Specific [place] <=1.005 1.016-1.022 Urine Protein 1+ H NEGATIVE Urine Glucose (UA) TRACE H NEGATIVE Urine Ketones NEGATIVE NEGATIVE Urine Nitrite NEGATIVE NEGATIVE Urine Bilirubin NEGATIVE NEGATIVE Urine Urobilinogen 0.2 < = 1.0 MG/DL Urine Leukocyte Esterase NEGATIVE NEGATIVE Urine RBC (Auto) NEGATIVE NEGATIVE Urine RBC NONE /HPF Urine WBC 0-2 /HPF Urine Crystals NONE /LPF Urine Bacteria NEGATIVE /HPF Urine Casts PRESENT /LPF Urine Hyaline Casts 0-2 H /LPF Urine Mucus NEGATIVE /LPF Urine Culture Indicated NO (VALENTINA VALERIO MD) My Orders Orders - VALENTINA VALERIO MD Covid 19 Inhouse Test (08/14/22:) Influenza A And B By Pcr (08/14/22) Cbc With Automated Diff (08/14/22) Comprehensive Metabolic Panel (08/14/22) Blood Culture (08/14/22) Sputum Culture (08/14/22) Urinalysis (08/14/22) Urine Culture (08/14/22) Protime With Inr (08/14/22) Partial Thromboplastin Time (08/14/22) Chest 1 View, Ap/Pa Only (08/14/22) Ed Iv/Invasive Line Start (08/14/22) Vital Signs Adult Sepsis Patie Q15M (08/14/22:) O2 (08/14/22:) Remove Rings In Anticipation O (08/14/22) Lactic Acid Analyzer (08/14/22) Bnp Chris (08/14/22:) Hs C Reactive Protein (08/14/22:) Fibrin Degradation Products (08/14/22:) Procalcitonin (Pct) (08/14/22:) Magnesium (08/14/22) Ekg Tracing (08/14/22:) Myoglobin Serum (08/14/22) Monitor-Rhythm Ecg Trace Only (08/14/22) Lipid Panel (08/15/22 06:00) Troponin I Chris (08/14/22) Albuterol Inhaler (Albuterol) (08/14/22:) Arterial Blood Gas (08/14/22 22:35) Albuterol Inhaler (Albuterol) (08/14/22 22:40) Manual Differential (08/14/22 22:43) Arterial Blood Draw - Obtain (08/14/22 ) Ct Angio Chest W (08/14/22 23:22) Iohexol Injection (Omnipaque 350 Mg/Ml 1 (08/15/22 00:30) Received Contrast (Hold Metformin- Contr (08/15/22 00:30) Ns (Ivpb) (Sodium Chloride 0.9% Ivpb Bag (08/15/22 00:30) Heparin Drip 52161 Unit/500ml (Heparin (08/15/22 01:45) Heparin (Bolus Per Protocol) (Heparin (B (08/15/22 01:45) (VALENTINA VALERIO MD) Medications Given in ED Current Medications Medications Dose Ordered Sig/Hay Route Start Time Stop Time Status Last Admin Dose Admin Heparin Sodium (Porcine) HEPARIN FULL PROTOC... ONCE ONCE IV 08/15/22 01:45 08/15/22 01:46 DC 08/15/22 01:59 10,000 UNIT Heparin Sodium/ Dextrose 500 ml @ 0 mls/hr Q0M ONCE IV 08/15/22 01:45 08/15/22 01:46 DC 08/15/22 02:00 24 MLS/HR Iohexol 100 ml ONCE ONCE IV 08/15/22 00:30 08/15/22 00:40 DC 08/15/22 00:22 88 ML Sodium Chloride 100 ml ONCE ONCE IV 08/15/22 00:30 08/15/22 00:40 DC 08/15/22 00:22 70 ML (VALENTINA VALERIO MD) Vital Signs/I&O 08/14/22 08/14/22 08/14/22 08/14/22 22:02 22:14 22:20 22:57 Temp 35.2 Pulse 114 Resp 20 B/P (MAP) 146/120 (129) Pulse Ox 89 90 O2 Delivery Nasal Cannula OxyMask Nasal Cannula OxyMask O2 Flow Rate 5.00 10.00 4.00 15.00 FiO2 87 08/15/22 08/15/22 01:09 03:31 Pulse 101 94 Resp 22 B/P (MAP) 95/67 Pulse Ox 96 91 O2 Delivery NIV Bilevel O2 Flow Rate 45.00 (VALENTINA VALERIO MD) Vital Signs/I&O Capillary Refill : (LEXIS GILLILAND) Blood Pressure Mean: 129 Progress Note #1: Time: 01:43 Progress Note Patient was hypoxic with oxygen saturations in the upper 80s on high flow nasal cannula. He was converted to an oxymask and given albuterol. Even after these interventions he eventually had saturations dipping into the 80s. BiPAP was started and adjusted per response. D-dimer was elevated and CT angiogram was obtained. He was found to have large clot burden with bilateral segmental pulmonary emboli. There was associated right heart strain. I discussed the [facility] with Dr[facility] Rodriguez[facility] in [place]. She recommended consulting with a facility that performs embolectomy. If no such facility was available or he was not a candidate for embolectomy/thrombectomy, then he was to be admitted at our facility with consideration for thrombolytic therapy. I discussed the situation with Dr. López, based on patient's current fragile status and potential for decompensation, he recommended transfer to their facility in [place] where a thrombectomy could be performed on an emergent basis if needed. In the mean time, we are initiating heparin bolus and drip. Patient remains on BiPAP. Progress Note #2: Time: 03:13 Progress Note We were able to procure a flight crew to transport patient to [place]. We are awaiting arrival of the transport crew which should be in the next 30 minutes. Patient's oxygen saturations remained stable when he is awake and in upright position. He is still struggling some with hypoxia when he falls asleep or reclines. Heparin drip is infusing. (VALENTINA VALERIO MD) ECG Initial ECG Impression Date: Aug 15, 2022 Initial ECG Impression Time: 22:56 Initial ECG Rate: 103 Initial ECG Rhythm: S.Tach Initial ECG Intervals: Normal Comment Sinus tachycardia with no ST elevation or depression. No abnormal intervals or axis deviation. No evidence of acute ischemia. (VALENTINA VALERIO MD) Diagnostic Imaging Diagonstic Imaging: Xray Plain Films/CT/US/NM/MRI: chest Comments Chest x-ray viewed by me. Report not yet available. There is some cardiomegaly noted with some mild central venous prominence. No consolidation appreciated Diagonstic Imaging: CT Plain Films/CT/US/NM/MRI: chest Comments CT angiogram chest viewed by me and stat rad report reviewed. Discussed with the radiologist. Impression states: Bilateral lobar and segmental pulmonary emboli with right heart strain. Fatty liver. (VALENTINA VALERIO MD) Departure Impression Primary Impression: Bilateral pulmonary embolism Additional Impressions: Cor pulmonale, acute Hypoxia Elevated troponin Disposition: 02 XFER SHT-TRM HOSP Condition: Critical Transfer Transfer Reason: Exceeds level of care Time Spoke to Accepting Phy: 01:20 Transfer Progress Notes Transfer accepted by Dr. Anthony, chefs at [facility] in [place]. Transfer Time: 04:20 Transfer Facility: [facility] Method of Transfer: Air (VALENTINA VALERIO MD) Departure-Patient Inst. Referrals: NO,LOCAL PHYSICIAN (PCP/Family) Primary Care Physician LEXIS GILLILAND Aug 14, 2022 22:35 VALENTINA VALERIO MD Aug 15, 2022 01:48
[2022-08-14] MEDS ORDERED: RT-ALBUTEROL HFA 8.5 GM INHALER IH ONE (22:40)
[2022-08-14 22:54] LABS: BASOPHILS % (AUTO) 0 % (0-10); EOSINOPHILS # (AUTO) 0.1 10^3/uL (0.0-0.3); EOSINOPHILS % (AUTO) 1 % (0-10); HEMATOCRIT 44 % (40-54); HEMOGLOBIN 13.5 g/dL (13.3-17.7); LYMPHOCYTES # (AUTO) 1.6 10^3/uL (1.0-4.0); LYMPHOCYTES % (AUTO) 10 % (12-44); MEAN CORPUSCULAR HEMOGLOBIN 27 pg (25-34); MEAN CORPUSCULAR HGB CONC 31 g/dL (32-36); MEAN CORPUSCULAR VOLUME 89 fL (80-99); MONOCYTES # (AUTO) 0.9 10^3/uL (0.0-1.0); MONOCYTES % (AUTO) 6 % (0-12); NEUTROPHILS # (AUTO) 12.4 10^3/uL (1.8-7.8); NEUTROPHILS % (AUTO) 81 % (42-75); WHITE BLOOD COUNT 15.3 10^3/uL (4.3-11.0)
[2022-08-14 23:05] LABS: ABG BASE EXCESS 2.5 MMOL/L (-2.5-2.5); ABG OXYGEN SATURATION 88 % (94-100); ABG PCO2 41 MMHG (35-45); ABG PH 7.42 (7.37-7.43); ABG PO2 49 MMHG (79-93); ABG TCO2 28.3 MMOL/L (21.0-31.0); ALLENS TEST YES-POS; PATIENT TEMP 35.2; VENTILATOR NO
[2022-08-14 23:14] LABS: FIBRIN DEGRADATION PRODUCTS 2.1 UG/ML (0.00-0.49); INR 1.1 (0.8-1.4); PROTHROMBIN TIME PATIENT 14.6 SEC (12.2-14.7)
[2022-08-14 23:16] LABS: ALBUMIN 3.6 GM/DL (3.2-4.5); BILIRUBIN,TOTAL 0.5 MG/DL (0.1-1.0); CREATININE SERUM 1.32 MG/DL (0.60-1.30); MAGNESIUM 1.8 MG/DL (1.6-2.4); POTASSIUM 4.1 MMOL/L (3.6-5.0); TOTAL PROTEIN 7.5 GM/DL (6.4-8.2)
[2022-08-14 23:28] LABS: EOSINOPHILS % (MANUAL) 1 %; LYMPHOCYTES % (MANUAL) 12 %; MONOCYTES % (MANUAL) 8 %; NEUTROPHILS % (MANUAL) 79 %
[2022-08-14 23:29] LABS: NUCLEATED RED BLOOD CELLS 2; POLYCHROMASIA SLIGHT
[2022-08-14 23:30] LABS: PLATELET COUNT 233 10^3/uL (130-400)
[2022-08-15] MEDS ORDERED: HOLD METFORMIN - RECEIVED CONTRAST 20 ML VIAL IV SCH (00:30)
[2022-08-15] MEDS ORDERED: NS 100 ML (IVPB) BAG IV ONE (00:30)
[2022-08-15] MEDS ORDERED: IOHEXOL 350 MG/ML 100 ML (OMNIPAQUE 350) VIAL IV ONE (00:30)
[2022-08-15 01:09] VITALS: BP 146/120
[2022-08-15] MEDS ORDERED: HEParin 1000 UNIT/ML (10ML VIAL) FOR BOLUS IV ONE (01:45)
[2022-08-15] MEDS ORDERED: HEParin DRIP 25000 UNIT/500ML 500 ML IV ONE (01:45)
[2022-08-15 01:48] LABS: BILIRUBIN,URINE NEGATIVE (NEGATIVE); CLARITY,URINE CLEAR; COLOR,URINE YELLOW; GLUCOSE, URINE (UA) TRACE (NEGATIVE); KETONES,URINE NEGATIVE (NEGATIVE); LEUKOCYTE ESTERASE ,URINE NEGATIVE (NEGATIVE); NITRITE,URINE NEGATIVE (NEGATIVE); PH,URINE 6.5 (5-9); PROTEIN,URINE 1+ (NEGATIVE)
[2022-08-15 01:56] LABS: BACTERIA,URINE NEGATIVE /HPF; HYALINE CASTS, URINE 0-2 /LPF; WBC,URINE 0-2 /HPF
[2022-08-15 03:31] VITALS: BP 95/67
--- NOTE | 2022-08-15 06:53 | Diagnostic Imaging Report ---
Clinical Indication: Patient with shortness of air. Exam: CT angiogram of the chest performed with 88 cc Omnipaque 350 IV contrast. Coronal and oblique MIP images of the vasculature were created to better evaluate anatomy. Auto Exposure Controls were utilized during the CT exam to meet ALARA standards for radiation dose reduction. Comparison: Chest x-ray dated 12/31/2019. Findings: There is extensive occlusive and nonocclusive pulmonary emboli involving the distal right main pulmonary artery extending into the proximal segmental and subsegmental pulmonary arteries of the upper, lower, and middle lobe regions. There is occlusive and nonocclusive thrombus involving the proximal segmental pulmonary artery and subsegmental left pulmonary arteries throughout the left lung. There is reflux of contrast into the IVC. There is prominence of the right atrium with slight flattening of the ventricular septum concerning for right heart strain. There is patchy groundglass opacities throughout both lungs. There is patchy consolidation involving the middle lobe region. There is no pleural effusion or pneumothorax. There is no significant lymphadenopathy. There are degenerative spurs involving the thoracic spine. There is diffuse low-density seen throughout the liver which may be related to diffuse fatty infiltration. Remainder the visualized upper abdominal structures are unremarkable. Impression: 1: There is diffuse occlusive and nonocclusive bilateral pulmonary emboli which is described above. There is associated right heart strain. 2: Diffuse fatty infiltration of the liver. I agree with Stat rad report. Dictated by: Dictated on workstation # [id number]
--- NOTE | 2022-08-15 08:22 | Diagnostic Imaging Report ---
INDICATION: Shortness of air. COMPARISON: Follow-up CT chest from later same day FINDINGS: Single frontal radiographic view of the chest was obtained and demonstrates interval development of [id number] cardiomegaly. Pulmonary vasculature is within normal limits. Lungs are clear. There is no focal consolidation, large effusion, nor pneumothorax. Osseous structures show no acute abnormalities. IMPRESSION: 1. Interval development of [id number] cardiomegaly. No evidence of failure or focal infiltrate. Dictated by: Dictated on workstation # [id number]
[2022-08-15 17:30] LABS: TRIGLYCERIDES 124 MG/DL (<150); VLDL CHOLESTEROL 25 MG/DL (5-40)
[2022-08-15 17:35] LABS: CHOLESTEROL 159 MG/DL (< 200)
[2022-08-15 17:36] LABS: HDL CHOLESTEROL 38 MG/DL (40-60)
== END 2022-08-15 03:31 | disposition short-term general hospital (02) ==
LOC: EDUNIT# 21:57 → ER 22:00
DX: I26.09 Other pulmonary embolism with acute cor pulmonale (principal); R77.8 Other specified abnormalities of plasma proteins; R09.02 Hypoxemia; F17.290 Nicotine dependence, other tobacco product, uncomplicated; E66.01 Morbid (severe) obesity due to excess calories; Z68.43 Body mass index [BMI] 50.0-59.9, adult; Z20.822 Contact with and (suspected) exposure to COVID-19
CPT/HCPCS: 36415; 36600; 71045; 71275; 80053; 80061; 81000; 82805; 83605; 83735; 83874; 83880; 84145; 84484; 85007; 85027; 85379; 85610; 85730; 86141; 87040; 87088; 87636; 93005; 93041; 94640; 96374

== ENCOUNTER → 2023-02-24 | Outpatient (CLI) | payer MEDICARE | LOC: WOUNDCARE 14:05 | PROVIDERS: ATTEND Family Medicine | DX: I96 Gangrene, not elsewhere classified (principal); L89.153 Pressure ulcer of sacral region, stage 3; E11.622 Type 2 diabetes mellitus with other skin ulcer; E11.65 Type 2 diabetes mellitus with hyperglycemia; M62.81 Muscle weakness (generalized); E66.01 Morbid (severe) obesity due to excess calories; Z68.42 Body mass index [BMI] 45.0-49.9, adult | CPT/HCPCS: 11042 ==

== ENCOUNTER → 2023-03-03 | Outpatient (CLI) | payer MEDICARE ==
[2023-03-03 15:54] LABS: BASOPHILS % (AUTO) 0 % (0-10); EOSINOPHILS # (AUTO) 0.2 10^3/uL (0.0-0.3); EOSINOPHILS % (AUTO) 3 % (0-10); HEMATOCRIT 32 % (40-54); HEMOGLOBIN 9.1 g/dL (13.3-17.7); LYMPHOCYTES % (AUTO) 33 % (12-44); MEAN CORPUSCULAR HEMOGLOBIN 21 pg (25-34); MEAN CORPUSCULAR HGB CONC 29 g/dL (32-36); MEAN CORPUSCULAR VOLUME 74 fL (80-99); MEAN PLATELET VOLUME 9.5 fL (9.0-12.2); MONOCYTES # (AUTO) 0.3 10^3/uL (0.0-1.0); MONOCYTES % (AUTO) 6 % (0-12); NEUTROPHILS # (AUTO) 3.5 10^3/uL (1.8-7.8); NEUTROPHILS % (AUTO) 58 % (42-75); PLATELET COUNT 330 10^3/uL (130-400)
[2023-03-03 15:55] LABS: ERYTHROCYTE SEDIMENTATION RATE 44 MM/HR (0-30)
[2023-03-03 17:50] LABS: CALCIUM 8.7 MG/DL (8.5-10.1); CREATININE SERUM 1.05 MG/DL (0.60-1.30); POTASSIUM 3.7 MMOL/L (3.6-5.0)
== END ==
LOC: WOUNDCARE 13:00
PROVIDERS: ATTEND Family Medicine
DX: E11.622 Type 2 diabetes mellitus with other skin ulcer (principal); L89.153 Pressure ulcer of sacral region, stage 3; Z68.42 Body mass index [BMI] 45.0-49.9, adult; E11.65 Type 2 diabetes mellitus with hyperglycemia; M62.81 Muscle weakness (generalized); E44.0 Moderate protein-calorie malnutrition; D46.4 Refractory anemia, unspecified
CPT/HCPCS: 11042; 36415; 80048; 82607; 82728; 82746; 83036; 83540; 83550; 84134; 85025; 85652; 86141

== ENCOUNTER → 2023-03-09 | Outpatient (CLI) | payer MEDICARE | LOC: WOUNDCARE 09:10 | PROVIDERS: ATTEND Family Medicine | DX: E11.622 Type 2 diabetes mellitus with other skin ulcer (principal); L89.513 Pressure ulcer of right ankle, stage 3; E66.01 Morbid (severe) obesity due to excess calories; E11.65 Type 2 diabetes mellitus with hyperglycemia; M62.81 Muscle weakness (generalized); E44.0 Moderate protein-calorie malnutrition; D46.4 Refractory anemia, unspecified; E11.52 Type 2 diabetes mellitus with diabetic peripheral angiopathy with gangrene; Z68.42 Body mass index [BMI] 45.0-49.9, adult | CPT/HCPCS: 99213 ==

== ENCOUNTER → 2023-03-10 | Outpatient (CLI) | payer MEDICARE ==
[~2023-03-10] MED LIST changes: +HOLD METFORMIN - RECEIVED CONTRAST 20 ML VIAL IV SCH; +IOHEXOL 350 MG/ML 100 ML (OMNIPAQUE 350) VIAL IV ONE; +NS 100 ML (IVPB) BAG IV ONE
--- NOTE | 2023-03-10 10:57 | Diagnostic Imaging Report ---
PROCEDURE: CT pelvis with contrast. TECHNIQUE: Oral and intravenous contrast were administered with pelvic CT performed. Auto Exposure Controls were utilized during the CT exam to meet ALARA standards for radiation dose reduction. INDICATION: Posterior sacral pressure wound COMPARISON: Radiographs from 07/18/2019 FINDINGS: No acute fracture is seen in the pelvis. Alignment appears normal. There are mild degenerative changes in the hip joints bilaterally. There is mild degenerative change at L5-S1. No cortical erosion or periosteal reaction is seen in the sacrum posteriorly. There is soft tissue density posteriorly, to the left of the gluteal cleft. No central hypodensity is seen to indicate an abscess and this could represent phlegmon or scarring. This extends up to the wound at the skin surface which measures about 3.6 cm transverse, involves the medial gluteus alex musculature. No soft tissue gas is seen. There is no focal muscular atrophy. No free fluid is seen in the pelvis. There are small fat-containing inguinal hernias bilaterally. The appendix appears normal. IMPRESSION: 1. Posterior left skin wound extends into the medial gluteus alxe musculature. This may represent phlegmon or scarring. No definite drainable rim-enhancing collection is seen on this exam. There are no CT findings of osteomyelitis, although MRI is more sensitive. Dictated by: Dictated on workstation # [id number]
== END ==
LOC: RAD 07:55
PROVIDERS: ATTEND Family Medicine
DX: L89.153 Pressure ulcer of sacral region, stage 3 (principal); E66.01 Morbid (severe) obesity due to excess calories; Z68.42 Body mass index [BMI] 45.0-49.9, adult; E11.622 Type 2 diabetes mellitus with other skin ulcer; E11.65 Type 2 diabetes mellitus with hyperglycemia; M62.81 Muscle weakness (generalized); E44.0 Moderate protein-calorie malnutrition; D46.4 Refractory anemia, unspecified
CPT/HCPCS: 72193

== ENCOUNTER → 2023-03-16 | Outpatient (CLI) | payer MEDICARE ==
[~2023-03-16] MED LIST changes: -HOLD METFORMIN - RECEIVED CONTRAST 20 ML VIAL IV SCH; -IOHEXOL 350 MG/ML 100 ML (OMNIPAQUE 350) VIAL IV ONE; -NS 100 ML (IVPB) BAG IV ONE
== END ==
LOC: WOUNDCARE 08:22
PROVIDERS: ATTEND Family Medicine
DX: L89.153 Pressure ulcer of sacral region, stage 3 (principal); E11.622 Type 2 diabetes mellitus with other skin ulcer; E11.65 Type 2 diabetes mellitus with hyperglycemia; M62.81 Muscle weakness (generalized); E44.0 Moderate protein-calorie malnutrition; D46.4 Refractory anemia, unspecified; E66.01 Morbid (severe) obesity due to excess calories; Z68.42 Body mass index [BMI] 45.0-49.9, adult
CPT/HCPCS: 99212

== ENCOUNTER 2023-05-27 10:26 | Outpatient (RCR) | payer MEDICARE ==
[2023-05-20 14:07] LABS: ABSOLUTE RETIC # 73 10e9/uL (24-90); BASOPHILS % (AUTO) 0 % (0-10); EOSINOPHILS # (AUTO) 0.1 10^3/uL (0.0-0.3); EOSINOPHILS % (AUTO) 1 % (0-10); HEMATOCRIT 36 % (40-54); HEMOGLOBIN 10.8 g/dL (13.3-17.7); LYMPHOCYTES # (AUTO) 1.9 10^3/uL (1.0-4.0); LYMPHOCYTES % (AUTO) 21 % (12-44); MEAN CORPUSCULAR HEMOGLOBIN 21 pg (25-34); MEAN CORPUSCULAR HGB CONC 30 g/dL (32-36); MEAN CORPUSCULAR VOLUME 72 fL (80-99); MONOCYTES # (AUTO) 0.6 10^3/uL (0.0-1.0); MONOCYTES % (AUTO) 6 % (0-12); NEUTROPHILS # (AUTO) 6.5 10^3/uL (1.8-7.8); NEUTROPHILS % (AUTO) 71 % (42-75); PLATELET COUNT 364 10^3/uL (130-400); RETICULOCYTE % 1.44 % (0.50-2.40); WHITE BLOOD COUNT 9.1 10^3/uL (4.3-11.0)
[2023-05-22 12:14] LABS: INR 2.2 (0.8-1.4)
== END 2023-06-01 | disposition home or self-care (01) ==
LOC: ONC 10:26
PROVIDERS: ATTEND Internal Medicine Hematology & Oncology
DX: D50.9 Iron deficiency anemia, unspecified (principal); I26.99 Other pulmonary embolism without acute cor pulmonale; I82.890 Acute embolism and thrombosis of other specified veins; E11.9 Type 2 diabetes mellitus without complications; J44.9 Chronic obstructive pulmonary disease, unspecified; E66.9 Obesity, unspecified; G47.33 Obstructive sleep apnea (adult) (pediatric); I11.9 Hypertensive heart disease without heart failure; J18.9 Pneumonia, unspecified organism
CPT/HCPCS: 82607; 82728; 83540; 83550; 83615; 85025; 85045; 85610

== ENCOUNTER → 2023-07-09 | Outpatient (CLI) | payer MEDICARE ==
--- NOTE | 2023-07-09 10:38 | Diagnostic Imaging Report ---
Procedure: US Venous Lower Ext Odell. Technique: Multiple real-time grayscale images were obtained over the lower extremities in various projections, bilaterally. Additional duplex Doppler and color Doppler images were also obtained. Date: July 09, 2023. Indication 53-year-old male, pulmonary embolus. Evaluation for deep venous thrombosis. Comparison: None. Findings: The bilateral common femoral veins, superficial femoral veins, popliteal veins are patent. The bilateral imaged portions of the greater saphenous veins and deep peroneal veins are patent. There is thrombus in the right peroneal vein. The right posterior tibial vein is patent. The left posterior tibial and peroneal veins are patent. Impression: 1. Thrombus in the right peroneal vein. 2. Negative for left lower extremity deep venous thrombosis. Dictated by: Dictated on workstation # [id number]
== END ==
LOC: RAD 07:12
PROVIDERS: ATTEND Internal Medicine Hematology & Oncology
DX: I82.451 Acute embolism and thrombosis of right peroneal vein (principal)
CPT/HCPCS: 93970

== ENCOUNTER 2023-08-19 10:26 | Outpatient (RCR) | payer MEDICARE ==
[2023-07-17 10:28] VITALS: BP 126/82
[2023-08-19 10:54] LABS: BASOPHILS % (AUTO) 0 % (0-10); EOSINOPHILS # (AUTO) 0.2 10^3/uL (0.0-0.3); EOSINOPHILS % (AUTO) 2 % (0-10); HEMATOCRIT 45 % (40-54); HEMOGLOBIN 13.6 g/dL (13.3-17.7); LYMPHOCYTES # (AUTO) 2.1 10^3/uL (1.0-4.0); LYMPHOCYTES % (AUTO) 27 % (12-44); MEAN CORPUSCULAR HEMOGLOBIN 25 pg (25-34); MEAN CORPUSCULAR HGB CONC 31 g/dL (32-36); MEAN CORPUSCULAR VOLUME 81 fL (80-99); MEAN PLATELET VOLUME 10.5 fL (9.0-12.2); MONOCYTES # (AUTO) 0.5 10^3/uL (0.0-1.0); MONOCYTES % (AUTO) 6 % (0-12); NEUTROPHILS # (AUTO) 4.9 10^3/uL (1.8-7.8); NEUTROPHILS % (AUTO) 64 % (42-75); PLATELET COUNT 273 10^3/uL (130-400); WHITE BLOOD COUNT 7.6 10^3/uL (4.3-11.0)
== END 2023-09-01 | disposition home or self-care (01) ==
LOC: ONC 10:26
PROVIDERS: ATTEND Internal Medicine Hematology & Oncology
DX: D50.9 Iron deficiency anemia, unspecified (principal); E11.9 Type 2 diabetes mellitus without complications; I10 Essential (primary) hypertension
CPT/HCPCS: 82728; 83540; 83550; 85025

== ENCOUNTER 2023-09-25 20:04 | Emergency (ER) | payer MEDICARE ==
[~2023-09-25] VITALS: Ht 172.7 cm; Wt 131.5 kg
--- NOTE | 2023-09-25 20:25 | ED Headache ---
General Chief Complaint: Head/Cervical Problems Stated Complaint: SEVERE HEADACE, NAUSEA, HX OF BLOOD CLOTS Nursing Triage Note: TO ED VIA POV AND AMBULATORY WITH PERSONAL CANE TO ROOM 6 WITH C/O "SEVERE DEBILITATING HEADACHE" THAT STARTED 25 MIN GYN PHYSICIAN WHEN LAID DOWN IN BED. PT STATES HE DID NOT TAKE ANY OTC MEDICATION "SO I KNOW HOW BAD IT GETS". C/O "SOME BLURRY VISION". Source: patient Exam Limitations: no limitations History of Present Illness Date Seen by Provider: Sep 25, 2023 Time Seen by Provider: 20:11 Initial Comments 53-year-old male on Coumadin for history of DVT, PE about 1 year ago presents to the emergency department today for sudden severe headache that started about 25 minutes prior to arrival. He has never had similar headaches in the past though he did have a mild headache in a similar distribution about a week ago. He denies any fevers chills nausea vomiting. No dizziness changes in vision, upper or lower extremity weakness numbness or tingling. He states he had his INR checked recently and "they were happy with it" however he does not know what it was exactly. No neck stiffness. No trauma. All other systems reviewed and negative except documented per HPI. Voice recognition software was used to help create this chart Allergies and Home Medications Allergies Coded Allergies: No Known Drug Allergies (Unverified , 07/18/19) Patient Home Medication List Home Medication List Reviewed: Yes Acetaminophen (Tylenol Extra Strength) 500 Mg Tablet, 1,000 MG PO Q8H PRN for PAIN-MILD (1-4), (Reported) Entered as Reported by: YOLANDA KRAUS on 01/02/20 1022 Albuterol Sulfate (Ventolin Hfa) 1 Puff Puff, 2 PUFF IH Q4H PRN for SHORTNESS OF BREATH Prescribed by: ROBLES CORONADO on 01/04/20 1348 Calcium Carbonate (Tums X-Str) 300 Mg Tab.chew, 600 MG PO PRN PRN for IN DIGESTION, (Reported) Entered as Reported by: YOLANDA KRAUS on 01/02/20 1022 Ibuprofen (Ibuprofen) 200 Mg Tablet, 400-600 MG PO Q8H PRN for PAIN-MILD (1-4), (Reported) Entered as Reported by: YOLANDA KRAUS on 01/02/20 1022 Oseltamivir Phosphate (Tamiflu) 75 Mg Cap, 75 MG PO BID Prescribed by: MALDONADO CLAROS on 01/04/20 1111 Prednisone (Prednisone) 10 Mg Tab, 0 PO UD Prescribed by: ROBLES CORONADO on 01/04/20 1348 Review of Systems Review of Systems Constitutional: see HPI Past Clhmnit-Bvzapp-Envxfm Hx Patient Social History Tobacco Use?: No Substance use?: No Alcohol Use?: No Immunizations Up To Date First/Initial COVID19 Vaccinat: x2 Second COVID19 Vaccination Jeffy: x2 Third COVID19 Vaccination Date: x2 Seasonal Allergies Seasonal Allergies: No Past Medical History Surgery/Hospitalization HX: umbilical hernia, htn, pneumonia, swine flu PE's, PATTI, DM Surgeries: Yes Abdominal Respiratory: Yes (History of respiratory failure with intubation) Pneumonia Cardiac: Yes Hypertension Neurological: No Genitourinary: No Gastrointestinal: No Chronic Back Pain Endocrine: Yes (Borderline diabetes, morbid obesity) HEENT: No Cancer: No Psychosocial: No Integumentary: No Family Medical History No Pertinent Family Hx Physical Exam Vital Signs Vital Signs - First Documented Capillary Refill : Less Than 3 Seconds Height, Weight, BMI Height: '" Weight: lbs. oz. kg; 44.00 BMI Method: General Appearance: WD/WN, no apparent distress HEENT: PERRL/EOMI, normal ENT inspection, TMs normal, pharynx normal Neck: non-tender, supple Cardiovascular: regular rate, rhythm, no murmur Respiratory: chest non-tender, lungs clear, normal breath sounds, no respiratory distress, no accessory muscle use Gastrointestinal: normal bowel sounds, non tender, soft, no organomegaly Extremities: normal range of motion, non-tender, normal inspection, no pedal edema, no calf tenderness, normal capillary refill Psychiatric: alert, oriented x 3 Crainal Nerves: normal hearing, normal speech, PERRL Coordination/Gait: normal finger to nose, normal gait Motor/Sensory: no motor deficit, no sensory deficit, no pronator drift Skin: normal color, warm/dry Progress/Results/Core Measures Results/Orders Lab Results Laboratory Tests Test 09/25/23 20:39 Range/Units Prothrombin Time 20.5 H 12.2-14.7 SEC INR Comment 1.7 H 0.8-1.4 Sodium Level 141 135-145 MMOL/L Potassium Level 3.8 3.6-5.0 MMOL/L Chloride Level 107 98-107 MMOL/L Carbon Dioxide Level 23 21-32 MMOL/L Anion Gap 11 5-14 MMOL/L Blood Urea Nitrogen 20 H 7-18 MG/DL Creatinine 1.40 H 0.60-1.30 MG/DL Estimat Glomerular Filtration Rate 60 BUN/Creatinine Ratio 14 Glucose Level 116 H 70-105 MG/DL Calcium Level 9.5 8.5-10.1 MG/DL My Orders Orders - ALY PEREIRA DO Basic Metabolic Panel (09/25/23 20:20) Protime With Inr (09/25/23 20:20) Cbc And Automated Diff (09/25/23 20:20) Ct Head Wo (09/25/23 20:20) Vital Signs/I&O 09/25/23 09/25/23 20:12 20:12 Pulse 89 Resp 16 B/P (MAP) 179/102 (127) Pulse Ox 96 O2 Delivery Room Air Room Air Blood Pressure Mean: 127 Departure Communication (Admissions) Patient is hemodynamically stable, neurologically intact with a GCS of 15. ABCs are intact outside of some mild hypertension which resolved spontaneously withou t treatment. CT scan of his head shows no intracranial abnormalities, no hemorrhage. This was obtained due to the sudden onset of his headache and having on Coumadin, risk of spontaneous hemorrhage. INR is 1.7. Labs are otherwise unremarkable outside of some chronic elevated creatinine. No emergent medical conditions identified for your symptoms today. Include declines any me dications for his headaches at this time. He is discharged in stable condition. Impression Primary Impression: Headache Qualified Codes: R51.9 - Headache, unspecified Disposition: 01 HOME, SELF-CARE Condition: Stable Departure-Patient Inst. Referrals: BRUCE DARDEN APRN (PCP) Primary Care Physician Patient Instructions: Headache, Adult ED Add. Discharge Instructions: Your CT scan is normal. No emergent medical conditions are identified for your headache today. Use ibuprofen and Tylenol as needed for pain. Continue all medications as previously prescribed. Return to the emergency department for any severe concerns. Follow-up with your primary doctor for any nonemergent needs. All discharge instructions reviewed with patient and/or family. Voiced understanding. ALY PEREIRA DO Sep 25, 2023 20:25
[2023-09-25 20:57] LABS: INR 1.7 (0.8-1.4); PROTHROMBIN TIME PATIENT 20.5 SEC (12.2-14.7)
[2023-09-25 21:04] LABS: CALCIUM 9.5 MG/DL (8.5-10.1); CREATININE SERUM 1.4 MG/DL (0.60-1.30); POTASSIUM 3.8 MMOL/L (3.6-5.0)
--- NOTE | 2023-09-25 21:05 | Diagnostic Imaging Report ---
PROCEDURE: CT head without contrast. TECHNIQUE: Multiple contiguous axial images were obtained through the brain without the use of intravenous contrast. Auto Exposure Controls were utilized during the CT exam to meet ALARA standards for radiation dose reduction. INDICATION: Severe headache, anticoagulation. FINDINGS: The ventricles are normal in size, shape and position. There is no mass or hemorrhage. There is no extra-axial fluid collection. IMPRESSION: No acute abnormality seen in the head. Dictated by: Dictated on workstation # [id number]
[2023-09-25 21:40] LABS: BASOPHILS % (AUTO) 0 % (0-10); EOSINOPHILS # (AUTO) 0.2 10^3/uL (0.0-0.3); EOSINOPHILS % (AUTO) 2 % (0-10); HEMATOCRIT 46 % (40-54); HEMOGLOBIN 14.3 g/dL (13.3-17.7); LYMPHOCYTES # (AUTO) 2.5 10^3/uL (1.0-4.0); LYMPHOCYTES % (AUTO) 26 % (12-44); MEAN CORPUSCULAR HEMOGLOBIN 26 pg (25-34); MEAN CORPUSCULAR HGB CONC 31 g/dL (32-36); MEAN CORPUSCULAR VOLUME 82 fL (80-99); MEAN PLATELET VOLUME 10.3 fL (9.0-12.2); MONOCYTES # (AUTO) 0.6 10^3/uL (0.0-1.0); MONOCYTES % (AUTO) 6 % (0-12); NEUTROPHILS # (AUTO) 6.4 10^3/uL (1.8-7.8); NEUTROPHILS % (AUTO) 66 % (42-75); PLATELET COUNT 290 10^3/uL (130-400); WHITE BLOOD COUNT 9.7 10^3/uL (4.3-11.0)
[2023-09-25] MEDS ORDERED: KETOROLAC INJ 15 MG/ML VIAL IM ONE (21:45)
[2023-09-25 21:57] VITALS: BP 131/80
== END 2023-09-25 21:57 | disposition home or self-care (01) ==
LOC: EDUNIT# 20:04 → ER 20:06
DX: R51.9 Headache, unspecified (principal); I10 Essential (primary) hypertension; E66.01 Morbid (severe) obesity due to excess calories; I82.409 Acute embolism and thrombosis of unspecified deep veins of unspecified lower extremity; I26.99 Other pulmonary embolism without acute cor pulmonale; Z79.01 Long term (current) use of anticoagulants; Z68.41 Body mass index [BMI] 40.0-44.9, adult
CPT/HCPCS: 36415; 70450; 80048; 85025; 85610